=== PATIENT | female | born 1955 | race Caucasian/White ===

== ENCOUNTER 2018-04-13 18:37 | Inpatient (IN) | payer MEDICARE ==
[2018-04-13] MEDS ORDERED: diphenhydrAMINE 50 MG/ML 1 ML VIAL IVP STA (18:55)
[2018-04-13] MEDS ORDERED: FAMOTIDINE 20 MG/2 ML VIAL IV STA (18:55)
[2018-04-13] MEDS ORDERED: methylPREDNISolone SOD SUCCI 125 MG/2 ML VIAL IV STA (18:55)
[2018-04-13] MEDS ORDERED: SODIUM CHLORIDE 0.9% 500 ML IV STA (18:56)
--- NOTE | 2018-04-13 19:10 | ED ---
Allergic Reaction HPI - General Chief complaint: Allergic Reaction Stated complaint: POSS MED REACTION Time Seen by Provider: 04/13/18 18:49 Source: patient Mode of arrival: wheelchair Limitations: no limitations - History of Present Illness Initial Comments: 62-year-old female patient presents the emergency department today for evaluation of possible ALLERGIC reaction. Patient states that she started taking clindamycin and Bactrim 3 days ago for cellulitis to her lower extremities. Patient states that this afternoon she started having trouble breathing, a full body rash, and itching. Patient is unsure she has taken these medications before. She denies any throat, tongue, or lip swelling. Patient denies any recent fever, chills, chest pain, abdominal pain, nausea, vomiting, diarrhea, constipation, back pain, numbness, tingling, dizziness, weakness, hematuria, dysuria, urinary urgency, urinary frequency, headache, visual changes, or any other complaints. - Related Data Home Medications Medication Instructions Recorded Confirmed ALPRAZolam [Xanax] 0.25 mg PO BID PRN 04/13/18 04/13/18 Albuterol Inhaler [Ventolin Hfa 1 - 2 puff INHALATION RT-Q6H PRN 04/13/18 Inhaler] Albuterol Nebulized (Conc) 2.5 mg INHALATION RT-Q4H PRN 04/13/18 04/13/18 [Ventolin Nebulized (Conc)] Aspirin 325 mg PO DAILY 04/13/18 04/13/18 Atorvastatin [Lipitor] 20 mg PO DAILY 04/13/18 04/13/18 Cetirizine HCl [Zyrtec] 10 mg PO DAILY 04/13/18 04/13/18 Clindamycin [Cleocin] 150 mg PO Q8H 04/13/18 04/13/18 Cyclobenzaprine [Flexeril] 10 mg PO TID 04/13/18 04/13/18 Gabapentin [Neurontin] 600 mg PO TID 04/13/18 04/13/18 Levothyroxine Sodium [Synthroid] 125 mcg PO DAILY 04/13/18 04/13/18 Lisinopril-Hctz 10-12.5 mg 1 tab PO DAILY 04/13/18 04/13/18 [Zestoretic 10-12.5] Mometasone/Formoterol [Dulera 200 2 puff INHALATION BID 04/13/18 04/13/18 Mcg/5 Mcg Inhaler] Montelukast [Singulair] 10 mg PO HS 04/13/18 04/13/18 Phenytoin Sodium Extended 200 mg PO QAM 04/13/18 04/13/18 [Dilantin] Phenytoin Sodium Extended 300 mg PO HS 04/13/18 04/13/18 [Dilantin] Ranitidine HCl [Zantac] 150 mg PO DAILY 04/13/18 04/13/18 Sulfamethox-Tmp 800-160Mg [Bactrim 1 tab PO BID 04/13/18 04/13/18 DS 800-160 mg] diphenhydrAMINE [Benadryl] 25 mg PO BID PRN 04/13/18 04/13/18 predniSONE 20 mg PO DAILY 04/13/18 04/13/18 Allergies Allergy/AdvReac Type Severity Reaction Status Date / Time cephalexin [From Keflex] Allergy Rash/Hives Verified 04/13/18 19:12 ciprofloxacin [From Cipro] Allergy Rash/Hives Verified 04/13/18 19:12 clindamycin Allergy Rash/Hives Verified 04/13/18 19:12 levofloxacin [From Levaquin] Allergy Rash/Hives Verified 04/13/18 19:12 cyclobenzaprine AdvReac Rash/Hives Verified 04/13/18 19:12 [From Flexeril] Review of Systems ROS Statement: Those systems with pertinent positive or pertinent negative responses have been documented in the HPI. ROS Other: All systems not noted in ROS Statement are negative. Past Medical History Past Medical History: COPD, Hyperlipidemia, Hypertension, Seizure Disorder History of Any Multi-Drug Resistant Organisms: None Reported Past Surgical History: Appendectomy Additional Past Surgical History / Comment(s): Colonoscopy, colostomy, Past Psychological History: No Psychological Hx Reported Smoking Status: Former smoker Past Alcohol Use History: None Reported Past Drug Use History: None Reported General Exam Limitations: no limitations General appearance: alert, in no apparent distress, other (This is a well- developed, well-nourished, obese adult female patient in mild distress. Vital signs upon presentation are temperature 98.6F, pulse 109, respirations 25, blood pressure 119/55, pulse ox 93% on room air.) Eye exam: Present: normal appearance, PERRL, EOMI. Absent: scleral icterus, conjunctival injection, periorbital swelling ENT exam: Present: normal exam, normal oropharynx, mucous membranes moist Respiratory exam: Present: normal lung sounds bilaterally. Absent: respiratory distress, wheezes, rales, rhonchi, stridor Cardiovascular Exam: Present: normal rhythm, tachycardia, normal heart sounds. Absent: systolic murmur, diastolic murmur, rubs, gallop, clicks GI/Abdominal exam: Present: soft, normal bowel sounds. Absent: distended, tenderness, guarding, rebound, rigid Extremities exam: Present: other (Left lower leg is warm, and pedal post tibial pulses 2+ and equal bilaterally.) Neurological exam: Present: alert, oriented X3, CN II-XII intact Psychiatric exam: Present: normal affect, normal mood Skin exam: Present: warm, dry, intact, normal color, rash (There is a generalized upper body erythematous raised rash consistent with urticaria. Bilateral lower legs exhibit petechial rash. There are large purple macular patches to the left lower leg. Skin to the left leg is dusky.) Course Vital Signs 04/13/18 04/13/18 04/13/18 18:42 20:39 20:45 Temperature 98.6 F Pulse Rate 109 H 93 94 Respiratory 25 H 16 16 Rate Blood Pressure 119/55 O2 Sat by Pulse 93 L Oximetry Medical Decision Making - Medical Decision Making 62-year-old female patient presented to the emergency department initially for ALLERGIC reaction to medication. Patient was taking Bactrim, clindamycin, Flexeril, and prednisone for a presumed infection in her lower extremities. Physical examination did reveal a erythematous raised rash on her upper body and a petechial rash to her lower legs. Patient was mildly short of breath with oxygen saturation in the low 90s on room air. Patient was given Solu Medrol, Benadryl, and Pepcid. Rash did improve however patient continued to complain of shortness of breath especially with activity. Oxygen saturation remained low despite use of oxygen per nasal cannula. Patient does have a history of DVT and is only taking 325 aspirin daily. Given patient's shortness of breath, low oxygen saturation, history of DVT, and tachycardia we did proceed with CTA of the chest. Results did show multiple pulmonary emboli bilaterally. Patient be started on high dose heparin and admitted to the hospital for further evaluation. Patient be admitted to Dr. Blum. Pulmonology and cardiology will be consulted. - Lab Data Result diagrams: 04/13/18 18:51 04/13/18 18:51 Lab Results 04/13/18 04/13/18 04/13/18 Range/Units 18:51 18:51 18:51 WBC 16.0 H (3.8-10.6) k/uL RBC 5.44 H (3.80-5.40) m/uL Hgb 17.2 H (11.4-16.0) gm/dL Hct 50.1 H (34.0-46.0) % MCV 92.2 (80.0-100.0) fL MCH 31.7 (25.0-35.0) pg MCHC 34.3 (31.0-37.0) g/dL RDW 14.8 (11.5-15.5) % Plt Count 134 L (150-450) k/uL Neutrophils % 88 % Lymphocytes % 5 % Monocytes % 3 % Eosinophils % 3 % Basophils % 0 % Neutrophils # 14.0 H (1.3-7.7) k/uL Lymphocytes # 0.9 L (1.0-4.8) k/uL Monocytes # 0.5 (0-1.0) k/uL Eosinophils # 0.5 (0-0.7) k/uL Basophils # 0.0 (0-0.2) k/uL PT 10.5 (9.0-12.0) sec INR 1.1 (<1.2) APTT 23.5 (22.0-30.0) sec Sodium 131 L (137-145) mmol/L Potassium 3.9 (3.5-5.1) mmol/L Chloride 92 L (98-107) mmol/L Carbon Dioxide 26 (22-30) mmol/L Anion Gap 13 mmol/L BUN 23 H (7-17) mg/dL Creatinine 0.95 (0.52-1.04) mg/dL Est GFR (CKD-EPI)AfAm 74 (>60 ml/min/1.73 sqM) Est GFR (CKD-EPI)NonAf 64 (>60 ml/min/1.73 sqM) Glucose 105 H (74-99) mg/dL Calcium 8.7 (8.4-10.2) mg/dL Total Bilirubin 0.7 (0.2-1.3) mg/dL AST 55 H (14-36) U/L ALT 51 (9-52) U/L Alkaline Phosphatase 69 (38-126) U/L Total Creatine Kinase (30-135) U/L CK-MB (CK-2) (0.0-2.4) ng/mL CK-MB (CK-2) Rel Index Troponin I (0.000-0.034) ng/mL Total Protein 6.4 (6.3-8.2) g/dL Albumin 3.6 (3.5-5.0) g/dL 04/13/18 Range/Units 18:51 WBC (3.8-10.6) k/uL RBC (3.80-5.40) m/uL Hgb (11.4-16.0) gm/dL Hct (34.0-46.0) % MCV (80.0-100.0) fL MCH (25.0-35.0) pg MCHC (31.0-37.0) g/dL RDW (11.5-15.5) % Plt Count (150-450) k/uL Neutrophils % % Lymphocytes % % Monocytes % % Eosinophils % % Basophils % % Neutrophils # (1.3-7.7) k/uL Lymphocytes # (1.0-4.8) k/uL Monocytes # (0-1.0) k/uL Eosinophils # (0-0.7) k/uL Basophils # (0-0.2) k/uL PT (9.0-12.0) sec INR (<1.2) APTT (22.0-30.0) sec Sodium (137-145) mmol/L Potassium (3.5-5.1) mmol/L Chloride (98-107) mmol/L Carbon Dioxide (22-30) mmol/L Anion Gap mmol/L BUN (7-17) mg/dL Creatinine (0.52-1.04) mg/dL Est GFR (CKD-EPI)AfAm (>60 ml/min/1.73 sqM) Est GFR (CKD-EPI)NonAf (>60 ml/min/1.73 sqM) Glucose (74-99) mg/dL Calcium (8.4-10.2) mg/dL Total Bilirubin (0.2-1.3) mg/dL AST (14-36) U/L ALT (9-52) U/L Alkaline Phosphatase (38-126) U/L Total Creatine Kinase 36 (30-135) U/L CK-MB (CK-2) 1.5 (0.0-2.4) ng/mL CK-MB (CK-2) Rel Index 4.2 Troponin I 0.205 H* (0.000-0.034) ng/mL Total Protein (6.3-8.2) g/dL Albumin (3.5-5.0) g/dL - EKG Data -: EKG Interpreted by Me EKG Comments: EKG obtained at 2307 shows sinus rhythm with occasional premature ventricular, axis. Low voltage QRS. Ventricular rate is 99, [place] interval 122, QR denominational 86, QT 346, QTc 444. No evidence of ST elevation or depression. - Radiology Data Radiology results: report reviewed, image reviewed Two-view x-ray of the chest is obtained. Heart and mediastinum are normal. Lungs are clear. Costophrenic angles are clear. Bony thorax is intact. Impression by Dr. Sullivan shows no active cardiopulmonary disease. CT angios of the chest was obtained. Report was reviewed in its entirety. Impression by Dr. Sullivan shows multiple bilateral lower lobe pulmonary emboli. There is also some involvement of the right upper lobe. Disposition Clinical Impression: Allergic reaction, Pulmonary embolism, bilateral Disposition: ADMITTED IP TO THIS [facility] Is patient prescribed a controlled substance at d/c from ED?: No Decision to Admit Reason: Admit from EC Decision Date: 04/13/18 Decision Time: 22:41
[2018-04-13 19:12] LABS: Basophils % (A) 0 %; Eosinophils # (A) 0.5 k/uL (0-0.7); Eosinophils % (A) 3 %; HCT 50.1 % (34.0-46.0); HGB 17.2 gm/dL (11.4-16.0); Lymphocytes # (A) 0.9 k/uL (1.0-4.8); Lymphocytes % (A) 5 %; MCH 31.7 pg (25.0-35.0); MCHC 34.3 g/dL (31.0-37.0); MCV 92.2 fL (80.0-100.0); Mean Platelet Volume 7.6; Monocytes # (A) 0.5 k/uL (0-1.0); Monocytes % (A) 3 %; Neutrophils % (A) 88 %; Platelet Count 134 k/uL (150-450); RBC 5.44 m/uL (3.80-5.40); RDW 14.8 % (11.5-15.5)
[2018-04-13 19:22] LABS: Albumin 3.6 g/dL (3.5-5.0); Calcium 8.7 mg/dL (8.4-10.2); Potassium 3.9 mmol/L (3.5-5.1); Total Bilirubin 0.7 mg/dL (0.2-1.3); Total Protein 6.4 g/dL (6.3-8.2)
[2018-04-13 19:27] LABS: INR 1.1 (<1.2); Partial Thromboplastin Time 23.5 sec (22.0-30.0); Prothrombin Time 10.5 sec (9.0-12.0)
[2018-04-13] MEDS ORDERED: IPRATROPIUM-ALBUTEROL 3 ML NEB INHALATION STA (20:27)
--- NOTE | 2018-04-13 21:16 | XR ---
EXAMINATION TYPE: XR chest 2V DATE OF EXAM: 04/13/2018 COMPARISON: NONE HISTORY: Short of breath TECHNIQUE: Frontal and lateral views of the chest are obtained. FINDINGS: Heart and mediastinum are normal. Lungs are clear. Costophrenic angles are clear. Bony tho rax is intact. IMPRESSION: No active cardiopulmonary disease.
--- NOTE | 2018-04-13 22:26 | CT ---
EXAMINATION TYPE: CT chest angio for PE DATE OF EXAM: 04/13/2018 COMPARISON: NONE HISTORY: SOB, medication reaction CT DLP: 1067 mGycm Automated exposure control for dose reduction was used. CONTRAST: CT Chest for pulmonary embolism performed with with IV Contrast, patient injected with 60 mL of Isovu e 370. FINDINGS: There are 3-D post processed images. There is some coarsening of pulmonary interstitial markings. The re is some coalescent subpleural infiltrate at the left posterior lung base. There is no pericardial effusion. There are multiple large filling defects in the right lower lobe pu lmonary artery. There are small filling defects in the left lower lobe pulmonary artery. There is no mediastinal adenopathy. There is spurring in the thoracic spine.. Thoracic aorta is atheromatous. The re is no evidence of aneurysm or dissection. Impression Multiple bilateral lower lobe pulmonary emboli. There is also some involvement of right upper lobe. T his exam was discussed with the emergency room at 10:20 PM.
[2018-04-13] MEDS ORDERED: HEPARIN SODIUM,PORCINE 5,000 UNIT/ML 1 ML VIAL IV ONE (22:35)
[2018-04-13] MEDS ORDERED: HEPARIN SODIUM,PORCINE 5,000 UNIT/ML 1 ML VIAL IV PRN (22:35)
[2018-04-13] MEDS ORDERED: NALOXONE 0.4 MG/ML 1 ML VIAL IV PRN (22:36)
[2018-04-13] MEDS: SODIUM CHLORIDE 0.9% 1,000 ML IV SCH (23:17)
[2018-04-13] MEDS: HEPARIN SOD,PORK IN 0.45% NACL 25,000 UNIT in 0.45% NACL 1 500ML.BAG IV SCH (23:17)
[2018-04-13 23:18] LABS: Creatine Kinase MB 1.5 ng/mL (0.0-2.4)
[2018-04-13 23:19] LABS: Troponin I 0.205 ng/mL (0.000-0.034)
[2018-04-14 00:21] VITALS: BMI 51.2
[2018-04-14] MEDS: diphenhydrAMINE 50 MG/ML 1 ML VIAL IVP PRN ×4 (05:06→23:47)
[2018-04-14] MEDS: GABAPENTIN 300 MG CAP PO SCH ×5 (05:06→21:43)
[2018-04-14] MEDS: LEVOTHYROXINE 125 MCG TAB PO SCH (05:07)
[2018-04-14] MEDS: PHENYTOIN SODIUM EXTENDED 100 MG CAP PO SCH ×4 (05:07→21:43)
[2018-04-14 06:39] LABS: Basophils % (A) 0 %; Eosinophils # (A) 0.5 k/uL (0-0.7); Eosinophils % (A) 3 %; HCT 47.2 % (34.0-46.0); HGB 15.9 gm/dL (11.4-16.0); Lymphocytes % (A) 6 %; MCH 31.3 pg (25.0-35.0); MCHC 33.7 g/dL (31.0-37.0); MCV 92.7 fL (80.0-100.0); Mean Platelet Volume 7.5; Monocytes # (A) 0.5 k/uL (0-1.0); Monocytes % (A) 3 %; Neutrophils # (A) 15.4 k/uL (1.3-7.7); Neutrophils % (A) 88 %; Platelet Count 131 k/uL (150-450); RBC 5.09 m/uL (3.80-5.40); RDW 14.5 % (11.5-15.5); WBC 17.6 k/uL (3.8-10.6)
[2018-04-14] MEDS: FAMOTIDINE 20 MG TAB PO SCH (08:29)
[2018-04-14] MEDS: ATORVASTATIN 20 MG TAB PO SCH (08:29)
[2018-04-14] MEDS: LISINOPRIL-HCTZ 10-12.5 MG 1 EACH TAB PO SCH (08:30)
[2018-04-14] MEDS: LORATADINE 10 MG TAB PO SCH (08:30)
[2018-04-14] MEDS ORDERED: FAMOTIDINE 20 MG/2 ML VIAL IV SCH (09:00)
--- NOTE | 2018-04-14 09:29 | P.CRDCN ---
History of Present Illness History of present illness: Patient admitted with shortness of breath. There is also an issue regarding an ALLERGIC reaction to Bactrim and clindamycin which she started 3 days back. However she was found to have bilateral pulmonary emboli after an evaluation for shortness of breath. She denied any chest discomfort she is lying flat in bed but she is short of breath at rest. She's had a history DVT in the past. CT angiogram chest documented multiple bilateral lower lobe pulmonary emboli as well as involvement of the right upper lobe Currently was consulted on account of sinus tachycardia. Twelve-lead ECG shows heart rate of 100 beats a minute which is appropriate for someone with pulmonary embolism, bilateral, with associated shortness of breath Her white count is elevated at 17,000 Borderline troponins of 0.2 which is also consistent with the diagnosis of pulmonary embolism All labs are reviewed Review of systems: No fever chills or rigors, no cough, phlegm or expectoration , no nausea, vomiting or diarrhea, no hematuria, dysuria, no musculoskeletal complaints, no strokes or seizures, no skin lesions. Her main complaint is an ALLERGIC reaction and shortness of breath no chest pain On examination blood pressure is 127 68 mmHg pulse rate is in the 80s respirations rate increased afebrile Breath sounds are reduced bilaterally Patient is morbidly obese BMI Coumadin 50 Heart sounds are distant Bilateral lower extremity edema noted Impression Patient presented with bilateral pulmonary emboli with sinus tachycardia and borderline troponins consistent with a diagnosis of pulmonary was him. This does not represent an acute myocardial infarction. Rather it represents acute myocardial injury in response to bilateral pulmonary emboli and its effects Hypertension Dyslipidemia Suggest 2-D echo and Doppler study to assess RV size and function and PA pressures Management of pulmonary embolism per primary care team and pulmonology Past Medical History Past Medical History: COPD, Hyperlipidemia, Hypertension, Seizure Disorder History of Any Multi-Drug Resistant Organisms: None Reported Past Surgical History: Appendectomy Additional Past Surgical History / Comment(s): Colonoscopy, colostomy, Past Psychological History: No Psychological Hx Reported Smoking Status: Former smoker Past Alcohol Use History: None Reported Past Drug Use History: None Reported - Past Family History Father Family Medical History: Cancer Mother Family Medical History: CVA/TIA, Hypertension Additional Family Medical History / Comment(s): BRAIN ANEURYSM Medications and Allergies Home Medications Medication Instructions Recorded Confirmed Type ALPRAZolam [Xanax] 0.25 mg PO BID PRN 04/13/18 04/13/18 History Albuterol Inhaler [Ventolin Hfa 1 - 2 puff INHALATION RT-Q6H PRN 04/13/18 History Inhaler] Albuterol Nebulized (Conc) 2.5 mg INHALATION RT-Q4H PRN 04/13/18 04/13/18 History [Ventolin Nebulized (Conc)] Aspirin 325 mg PO DAILY 04/13/18 04/13/18 History Atorvastatin [Lipitor] 20 mg PO DAILY 04/13/18 04/13/18 History Cetirizine HCl [Zyrtec] 10 mg PO DAILY 04/13/18 04/13/18 History Clindamycin [Cleocin] 150 mg PO Q8H 04/13/18 04/13/18 History Cyclobenzaprine [Flexeril] 10 mg PO TID 04/13/18 04/13/18 History Gabapentin [Neurontin] 600 mg PO TID 04/13/18 04/13/18 History Levothyroxine Sodium [Synthroid] 125 mcg PO DAILY 04/13/18 04/13/18 History Lisinopril-Hctz 10-12.5 mg 1 tab PO DAILY 04/13/18 04/13/18 History [Zestoretic 10-12.5] Mometasone/Formoterol [Dulera 200 2 puff INHALATION BID 04/13/18 04/13/18 History Mcg/5 Mcg Inhaler] Montelukast [Singulair] 10 mg PO HS 04/13/18 04/13/18 History Phenytoin Sodium Extended 200 mg PO QAM 04/13/18 04/13/18 History [Dilantin] Phenytoin Sodium Extended 300 mg PO HS 04/13/18 04/13/18 History [Dilantin] Ranitidine HCl [Zantac] 150 mg PO DAILY 04/13/18 04/13/18 History Sulfamethox-Tmp 800-160Mg [Bactrim 1 tab PO BID 04/13/18 04/13/18 History DS 800-160 mg] diphenhydrAMINE [Benadryl] 25 mg PO BID PRN 04/13/18 04/13/18 History predniSONE 20 mg PO DAILY 04/13/18 04/13/18 History Allergies Allergy/AdvReac Type Severity Reaction Status Date / Time cephalexin [From Keflex] Allergy Rash/Hives Verified 04/13/18 19:12 ciprofloxacin [From Cipro] Allergy Rash/Hives Verified 04/13/18 19:12 clindamycin Allergy Rash/Hives Verified 04/13/18 19:12 levofloxacin [From Levaquin] Allergy Rash/Hives Verified 04/13/18 19:12 cyclobenzaprine AdvReac Rash/Hives Verified 04/13/18 19:12 [From Flexeril] Physical Exam Vitals: Vital Signs Temp Pulse Pulse Resp BP BP Pulse Ox 04/14/18 08:10 97.4 F L 82 16 127/68 90 L 04/14/18 06:56 97 04/14/18 04:00 98.0 F 78 19 118/67 93 L 04/14/18 00:00 97.8 F 81 19 114/60 93 L 04/13/18 23:18 97.9 F 106 H 28 H 107/56 94 L 04/13/18 20:45 94 16 04/13/18 20:39 93 16 04/13/18 18:42 98.6 F 109 H 25 H 119/55 93 L Intake and Output 04/13/18 04/14/18 04/14/18 22:59 06:59 14:59 Intake Total 358.902 Balance 358.902 Intake: Intake, IV Titration 358.902 Amount Heparin Sod,Pork in 0.45% 358.902 NaCl 25,000 unit In 0.45 % NaCl 1 500ml.bag @ 18 UNITS/KG/HR 45.72 mls/hr IV .[id number] [facility] Rx#: [id number] Other: Voiding Method Toilet # Voids 1 Weight 127.006 kg 127 kg Results 04/14/18 06:17 04/13/18 18:51 Cardiac Enzymes 04/13/18 04/13/18 04/14/18 Range/Units 18:51 18:51 02:45 AST 55 H (14-36) U/L CK-MB (CK-2) 1.5 (0.0-2.4) ng/mL Troponin I 0.205 H* 0.298 H* (0.000-0.034) ng/mL 04/14/18 Range/Units 06:17 AST (14-36) U/L CK-MB (CK-2) (0.0-2.4) ng/mL Troponin I 0.210 H* (0.000-0.034) ng/mL Coagulation 18 04/14/18 Range/Units 18:51 06:17 PT 10.5 (9.0-12.0) sec APTT 23.5 153.1 H* (22.0-30.0) sec CBC 04/13/18 04/14/18 Range/Units 18:51 06:17 WBC 16.0 H 17.6 H (3.8-10.6) k/uL RBC 5.44 H 5.09 (3.80-5.40) m/uL Hgb 17.2 H 15.9 (11.4-16.0) gm/dL Hct 50.1 H 47.2 H (34.0-46.0) % Plt Count 134 L 131 L (150-450) k/uL Comprehensive Metabolic Panel 04/13/18 Range/Units 18:51 Sodium 131 L (137-145) mmol/L Potassium 3.9 (3.5-5.1) mmol/L Chloride 92 L (98-107) mmol/L Carbon Dioxide 26 (22-30) mmol/L BUN 23 H (7-17) mg/dL Creatinine 0.95 (0.52-1.04) mg/dL Glucose 105 H (74-99) mg/dL Calcium 8.7 (8.4-10.2) mg/dL AST 55 H (14-36) U/L ALT 51 (9-52) U/L Alkaline Phosphatase 69 (38-126) U/L Total Protein 6.4 (6.3-8.2) g/dL Albumin 3.6 (3.5-5.0) g/dL Current Medications Generic Name Dose Route Start Last Admin Trade Name Freq PRN Reason Stop Dose Admin Alprazolam 0.25 mg 04/13/18 23:30 Xanax PO BID PRN Anxiety Atorvastatin Calcium 20 mg 04/14/18 09:00 04/14/18 08:29 Lipitor PO 20 mg DAILY MAURICE Administration Budesonide/Formoterol Fumarate 2 puff 04/14/18 09:00 Symbicort 160-4.5 Mcg Inhaler INHALATION RT-BID MAURICE Diphenhydramine HCl 25 mg 04/13/18 22:39 04/14/18 05:06 Benadryl IVP 25 mg Q6HR PRN Administration Allergy Symptoms Famotidine 20 mg 04/14/18 09:00 Pepcid IV DAILY MAURICE Famotidine 20 mg 04/14/18 09:00 04/14/18 08:29 Pepcid PO 20 mg DAILY MAURICE Administration Gabapentin 600 mg 04/14/18 00:00 04/14/18 08:38 Neurontin PO 300 mg TID MAURICE Administration Lisinopril/HCTZ 1 each 04/14/18 09:00 04/14/18 08:30 Zestoretic 10-12.5 PO 1 each DAILY MAURICE Administration Heparin Sodium (Porcine) 0 unit 04/13/18 22:35 Heparin IV PER PROTOCOL PRN Low PTT Protocol Heparin Sodium/Sodium Chloride 500 mls @ 45.72 mls/hr 04/13/18 22:45 08:14 25,000 unit/ Sodium Chloride IV 15 units/kg/hr .[id number] MAURICE 38.1 mls/hr Protocol Titration 18 UNITS/KG/HR Sodium Chloride 1,000 mls @ 20 mls/hr 04/13/18 22:45 04/13/18 23:17 Saline 0.9% IV 20 mls/hr .Q24H MAURICE Administration Levothyroxine Sodium 125 mcg 04/14/18 06:30 04/14/18 05:07 Synthroid PO 125 mcg DAILY@0630 MAURICE Administration Loratadine 10 mg 04/14/18 09:00 04/14/18 08:30 Claritin PO 10 mg DAILY MAURICE Administration Montelukast Sodium 10 mg 04/14/18 21:00 Singulair PO HS MAURICE Naloxone HCl 0.2 mg 04/13/18 22:36 Narcan IV Q2M PRN Opioid Reversal Phenytoin Sodium 200 mg 04/14/18 09:00 04/14/18 08:31 Dilantin PO 200 mg QAM MAURICE Administration Phenytoin Sodium 300 mg 04/14/18 00:00 04/14/18 05:13 Dilantin PO Not Given HS MAURICE Intake and Output 04/13/18 04/14/18 04/14/18 22:59 06:59 14:59 Intake Total 358.902 Balance 358.902 Intake: Intake, IV Titration 358.902 Amount Heparin Sod,Pork in 0.45% 358.902 NaCl 25,000 unit In 0.45 % NaCl 1 500ml.bag @ 18 UNITS/KG/HR 45.72 mls/hr IV .[id number] [facility] Rx#: [id number] Other: Voiding Method Toilet # Voids 1 Weight 127.006 kg 127 kg 04/14/18 06:17 04/13/18 18:51
[2018-04-14] MEDS: HEPARIN SOD,PORK IN 0.45% NACL 25,000 UNIT in 0.45% NACL 1 500ML.BAG IV SCH ×2 (11:43→23:46)
[2018-04-14] MEDS: methylPREDNISolone SOD SUCCI 125 MG/2 ML VIAL IV SCH ×3 (11:43→23:47)
--- NOTE | 2018-04-14 12:42 | US ---
EXAMINATION TYPE: US venous doppler duplex LE DATE OF EXAM: 04/14/2018 12:31 PM COMPARISON: NONE CLINICAL HISTORY: swelling. Bilateral PE's, hx of DVT, patient on blood thinners, obese patient, exam done portable SIDE PERFORMED: Bilateral TECHNIQUE: The lower extremity deep venous system is examined utilizing real time linear array sonog marcos with graded compression, doppler sonography and color-flow sonography. VESSELS IMAGED: External Iliac Vein (EIV) Common Femoral Vein Deep Femoral Vein Greater Saphenous Vein * Femoral Vein Popliteal Vein Small Saphenous Vein * Proximal Calf Veins (* superficial vessels) Right Leg: Appears negative for DVT Left Leg: Appears positive for non occluding DVT mid popliteal vein with partial flow and partial co mpression of vein. Thrombus seen within superficial greater saphenous vein from groin extending throu gh mid calf IMPRESSION: 1. Findings are compatible with mild occluding DVT within the popliteal vein. There also appears to b e superficial venous thrombosis within the saphenous vein from the groin extending through the mid ca lf.
--- NOTE | 2018-04-14 14:01 | ECHOF ---
Referral Reason:PE MEASUREMENTS -------- HEIGHT: 157.5 cm WEIGHT: 126.6 kg BP: 118/67 RVIDd: 3.5 cm (< 3.3) IVSd: 1.1 cm (0.6 - 1.1) LVIDd: 3.4 cm (3.9 - 5.3) LVPWd: 1.3 cm (0.6 - 1.1) IVSs: 1.6 cm LVIDs: 1.1 cm LVPWs: 2.0 cm Ao Diam: 3.2 cm (2.0 - 3.7) AV Cusp: 1.8 cm (1.5 - 2.6) LA Diam: 3.7 cm (2.7 - 3.8) MV EXCURSION: 12.885 mm (> 18.000) MV EF SLOPE: 79 mm/s (70 - 150) EPSS: 0.5 cm MV E Harley: 0.70 m/s MV DecT: 278 ms MV A Harley: 1.06 m/s MV E/A Ratio: 0.67 RAP: 5.00 mmHg RVSP: 38.18 mmHg FINDINGS -------- Sinus rhythm. This was a technically difficult study with suboptimal views. The left ventricular size is normal. Left ventricular wall thickness is normal. Overall left vent ricular systolic function is normal with, an EF between 55 - 60 %. The right ventricle is mildly enlarged. The left atrium is normal in size. The right atrium is normal in size. Lumason used The aortic valve is trileaflet, and appears structurally normal. No aortic stenosis or regurgitation. There is trace mitral regurgitation. Mild tricuspid regurgitation present. There is mild pulmonary hypertension. The right ventricular systolic pressure, as measured by Doppler, is 38.18mmHg. Pulmonic valve appears structurally normal. The aortic root size is normal. The pericardium is normal. CONCLUSIONS -------- 1. Sinus rhythm. 2. This was a technically difficult study with suboptimal views. 3. The left ventricular size is normal. 4. Left ventricular wall thickness is normal. 5. Overall left ventricular systolic function is normal with, an EF between 55 - 60 %. 6. The right ventricle is mildly enlarged. 7. The left atrium is normal in size. 8. The right atrium is normal in size. 9. Lumason used 10. The aortic valve is trileaflet, and appears structurally normal. No aortic stenosis or regurgitat ion. 11. There is trace mitral regurgitation. 12. Mild tricuspid regurgitation present. 13. There is mild pulmonary hypertension. 14. The right ventricular systolic pressure, as measured by Doppler, is 38.18mmHg. 15. Pulmonic valve appears structurally normal. 16. The aortic root size is normal. 17. The pericardium is normal. BOOK TRIMMER: Zakiya Spring RDCS
--- NOTE | 2018-04-14 14:58 | P.HPIM ---
History of Present Illness Hospitalist documentation spec covering for Dr. Blum from 04/10 until 04/20/2018 This is a pleasant 62 years old female with past medical history of hyperlipidemia, hypertension, seizure disorder, status post appendectomy, and former smoker. She presents to the emergency room for dyspnea of 2 days' duration. Patient states initially she had a block bite about a week ago after that she developed induration on the bite sites and along the line below its in the left lower leg medially and it was progressively towards the upper thigh. She went to the hospital and then to her doctor's where she was diagnosed with lymphangitis and started on the clindamycin and Bactrim. After about 4 doses of clindamycin she developed this rash which is petechial and confluent all over her body and extremities symmetrical and bilateral without itching. Patient states she has taken Bactrim before with no problems. However patient over the last 2 days she developed dyspnea, without chest pain in the ED patient was found to have dyspnea, tachycardia, and hypoxia. Patient was treated initially with steroids, Benadryl and Pepcid. Shows some interval improvement in her rash however she remained dyspneic and hypoxic and in view of her previous DVT as she was on aspirin for that CTPA was done which shows bilateral emboli so patient was admitted to the hospital with acute pulmonary embolism. Cardiology was been consulted for tachycardia and high troponin which couldn't be explained by the patient presentation of PE, infection, and other areas however recommended 2-D echo and treating the primary cause Review of Systems CONSTITUTIONAL: No fever, no malaise, no fatigue. HEENT: No recent visual problems or hearing problems. Denied any sore throat. CARDIOVASCULAR: No orthopnea, PND, no palpitations, no syncope. PULMONARY: No shortness of breath, no cough, no hemoptysis. GASTROINTESTINAL: No diarrhea, no nausea, no vomiting, no abdominal pain. Normoactive bowel sounds. NEUROLOGICAL: No headaches, no weakness, no numbness. HEMATOLOGICAL: Denies any bleeding or petechiae. GENITOURINARY: Denies any burning micturition, frequency, or urgency. MUSCULOSKELETAL/RHEUMATOLOGICAL: Denies any joint pain, swelling, or any muscle pain. ENDOCRINE: Denies any polyuria or polydipsia. Past Medical History Past Medical History: COPD, Hyperlipidemia, Hypertension, Seizure Disorder History of Any Multi-Drug Resistant Organisms: None Reported Past Surgical History: Appendectomy Additional Past Surgical History / Comment(s): Colonoscopy, colostomy, Past Psychological History: No Psychological Hx Reported Smoking Status: Former smoker Past Alcohol Use History: None Reported Past Drug Use History: None Reported - Past Family History Father Family Medical History: Cancer Mother Family Medical History: CVA/TIA, Hypertension Additional Family Medical History / Comment(s): BRAIN ANEURYSM Medications and Allergies Home Medications Medication Instructions Recorded Confirmed Type ALPRAZolam [Xanax] 0.25 mg PO BID PRN 04/13/18 04/13/18 History Albuterol Inhaler [Ventolin Hfa 1 - 2 puff INHALATION RT-Q6H PRN 04/13/18 History Inhaler] Albuterol Nebulized (Conc) 2.5 mg INHALATION RT-Q4H PRN 04/13/18 04/13/18 History [Ventolin Nebulized (Conc)] Aspirin 325 mg PO DAILY 04/13/18 04/13/18 History Atorvastatin [Lipitor] 20 mg PO DAILY 04/13/18 04/13/18 History Cetirizine HCl [Zyrtec] 10 mg PO DAILY 04/13/18 04/13/18 History Clindamycin [Cleocin] 150 mg PO Q8H 04/13/18 04/13/18 History Cyclobenzaprine [Flexeril] 10 mg PO TID 04/13/18 04/13/18 History Gabapentin [Neurontin] 600 mg PO TID 04/13/18 04/13/18 History Levothyroxine Sodium [Synthroid] 125 mcg PO DAILY 04/13/18 04/13/18 History Lisinopril-Hctz 10-12.5 mg 1 tab PO DAILY 04/13/18 04/13/18 History [Zestoretic 10-12.5] Mometasone/Formoterol [Dulera 200 2 puff INHALATION BID 04/13/18 04/13/18 History Mcg/5 Mcg Inhaler] Montelukast [Singulair] 10 mg PO HS 04/13/18 04/13/18 History Phenytoin Sodium Extended 200 mg PO QAM 04/13/18 04/13/18 History [Dilantin] Phenytoin Sodium Extended 300 mg PO HS 04/13/18 04/13/18 History [Dilantin] Ranitidine HCl [Zantac] 150 mg PO DAILY 04/13/18 04/13/18 History Sulfamethox-Tmp 800-160Mg [Bactrim 1 tab PO BID 04/13/18 04/13/18 History DS 800-160 mg] diphenhydrAMINE [Benadryl] 25 mg PO BID PRN 04/13/18 04/13/18 History predniSONE 20 mg PO DAILY 04/13/18 04/13/18 History Allergies Allergy/AdvReac Type Severity Reaction Status Date / Time cephalexin [From Keflex] Allergy Rash/Hives Verified 04/13/18 19:12 ciprofloxacin [From Cipro] Allergy Rash/Hives Verified 04/13/18 19:12 clindamycin Allergy Rash/Hives Verified 04/13/18 19:12 levofloxacin [From Levaquin] Allergy Rash/Hives Verified 04/13/18 19:12 cyclobenzaprine AdvReac Rash/Hives Verified 04/13/18 19:12 [From Flexeril] Physical Exam Vitals: Vital Signs Temp Pulse Pulse Resp BP BP Pulse Ox 04/14/18 08:10 97.4 F L 82 16 127/68 90 L 04/14/18 06:56 97 04/14/18 04:00 98.0 F 78 19 118/67 93 L 04/14/18 00:00 97.8 F 81 19 114/60 93 L 04/13/18 23:18 97.9 F 106 H 28 H 107/56 94 L 04/13/18 20:45 94 16 04/13/18 20:39 93 16 04/13/18 18:42 98.6 F 109 H 25 H 119/55 93 L Intake and Output 04/13/18 04/14/18 04/14/18 22:59 06:59 14:59 Intake Total 358.902 Balance 358.902 Intake: Intake, IV Titration 358.902 Amount Heparin Sod,Pork in 0.45% 358.902 NaCl 25,000 unit In 0.45 % NaCl 1 500ml.bag @ 18 UNITS/KG/HR 45.72 mls/hr IV .[id number] [facility] Rx#: [id number] Other: Voiding Method Toilet # Voids 1 Weight 127.006 kg 127 kg GENERAL: The patient is alert and oriented x3, not in any acute distress. Well developed, well nourished. HEENT: Pupils are round and equally reacting to light. EOMI. No scleral icterus. No conjunctival pallor. Normocephalic, atraumatic. No pharyngeal erythema. No thyromegaly. CARDIOVASCULAR: S1 and S2 present. No murmurs, rubs, or gallops. PULMONARY: Chest is clear to auscultation, no wheezing or crackles. Patient is tachypneic ABDOMEN: Soft, nontender, nondistended, normoactive bowel sounds. No palpable organomegaly. MUSCULOSKELETAL: No joint swelling or deformity. EXTREMITIES: No cyanosis, clubbing, or pedal edema. NEUROLOGICAL: Gross neurological examination did not reveal any focal deficits. SKIN: Petechial and confluent rashes, on the trunk and extremity, symmetrical Results CBC & Chem 7: 04/14/18 06:17 04/13/18 18:51 Labs: Abnormal Lab Results - Last 24 Hours (Table) 04/13/18 04/13/18 04/13/18 Range/Units 18:51 18:51 18:51 WBC 16.0 H (3.8-10.6) k/uL RBC 5.44 H (3.80-5.40) m/uL Hgb 17.2 H (11.4-16.0) gm/dL Hct 50.1 H (34.0-46.0) % Plt Count 134 L (150-450) k/uL Neutrophils # 14.0 H (1.3-7.7) k/uL Lymphocytes # 0.9 L (1.0-4.8) k/uL APTT (22.0-30.0) sec Sodium 131 L (137-145) mmol/L Chloride 92 L (98-107) mmol/L BUN 23 H (7-17) mg/dL Glucose 105 H (74-99) mg/dL AST 55 H (14-36) U/L Troponin I 0.205 H* (0.000-0.034) ng/mL 04/14/18 04/14/18 04/14/18 Range/Units 02:45 06:17 06:17 WBC 17.6 H (3.8-10.6) k/uL RBC (3.80-5.40) m/uL Hgb (11.4-16.0) gm/dL Hct 47.2 H (34.0-46.0) % Plt Count 131 L (150-450) k/uL Neutrophils # 15.4 H (1.3-7.7) k/uL Lymphocytes # (1.0-4.8) k/uL APTT 153.1 H* (22.0-30.0) sec Sodium (137-145) mmol/L Chloride (98-107) mmol/L BUN (7-17) mg/dL Glucose (74-99) mg/dL AST (14-36) U/L Troponin I 0.298 H* (0.000-0.034) ng/mL 04/14/18 Range/Units 06:17 WBC (3.8-10.6) k/uL RBC (3.80-5.40) m/uL Hgb (11.4-16.0) gm/dL Hct (34.0-46.0) % Plt Count (150-450) k/uL Neutrophils # (1.3-7.7) k/uL Lymphocytes # (1.0-4.8) k/uL APTT (22.0-30.0) sec Sodium (137-145) mmol/L Chloride (98-107) mmol/L BUN (7-17) mg/dL Glucose (74-99) mg/dL AST (14-36) U/L Troponin I 0.210 H* (0.000-0.034) ng/mL Thrombosis Risk Factor Assmnt - Choose All That Apply Each Factor Represents 1 point: Abnormal pulmonary function (COPD), Obesity ( BMI >25) Each Risk Factor Represents 2 Points: Age 61-74 years Each Risk Factor Represents 3 Points: History of DVT/PE Thrombosis Risk Factor Assessment Total Risk Factor Score: 7 Thrombosis Risk Factor Assessment Level: High Risk Assessment and Plan Plan: -Acute pulmonary embolism, continue with heparin drip as per protocol. Follow- up with pulmonary recommendation.pt is sa saturating 90% on 2 L/m oxygen. Venous Doppler positive for left lower extremity DVT -Tachycardia, with positive troponin, multifactorial mostly due to acute PE, versus infection. Wrapper Stemmer Operator has been consulted and recommended to do echo and treating the primary cause -Cellulitis, possible ALLERGIC reaction to outpatient therapy mostly to clindamycin as patient states that she has taken Bactrim before with no problem. call ID consult -Rash petite, confluent, on the trunk and extremities of one week duration, mostly secondary to ALLERGIC reaction to medications -Mild hyponatremia continue to monitor -History of seizure continue with Dilantin, check level -History of hypothyroidism on levothyroxine 125 g daily, check TSH level -Hyperlipidemia continue with statin -Hypertension continue with lisinopril-hydrochlorothiazide DVT prophylaxis, patient is already on anticoagulation therapy GI prophylaxis Pepcid
--- NOTE | 2018-04-14 15:40 | P.CNPUL ---
History of Present Illness Consult date: 04/14/18 Reason for consult: dyspnea History of present illness: 62-year-old female patient, morbidly obese with a BMI of 51.2, who was recently seen at her primary care physician's office for some increased erythema in lower extremities bilaterally. The patient was suspected to have cellulitis and the patient was placed on a combination of Bactrim and clindamycin. Apparently this started up after an insect/bug bite in her left lower extremity. Within a few days after the antibiotic initiation, the patient developed a diffuse maculopapular rash involving throughout the body, more extensive in lower extremities however still quite extensive in the upper extremities, trunk, and chest and back. Note that the patient's lower extremity rash is more so of a petechial rash which is involving areas that is nonblanching. Upper extremities and trunk seems to be more so with the care of your nature. No open wounds or sores. The patient was also having increased shortness of breath and for that reason she presented herself to the emergency department. Note that in the MRSA problem the patient was also complaining of acute shortness of breath, tachycardia and she was also hypoxic. She was given a dose of steroids, Benadryl and Pepcid and following that she was admitted to the medical floor. There was a concern for pulmonary embolism. CT angios the chest was done that was of a low quality as the patient had suboptimal contrast enhancement of the pulmonary arteries. The CTA was interpreted as being positive for bilateral embolism to the lower lobes and the patient was started on IV heparin and the patient was asked to be seen by pulmonology for further advice. The patient gives a remote history of DVT lower extremities yet this has not been acute problem and the patient has been on no anticoagulation. As mentioned, she is morbidly obese. She has history of COPD, hypertension and hyperlipidemia and previous history of seizure disorder. on her labs, the patient had a posterior troponin of 0.23 respectively. Renal function was stable at creatinine of 0.9. The white cell count is at 17.6. The patient has a hemoglobin of 15.9. She has 3% eosinophils.. Electrodes are all within normal limits. Echocardiogram was completed and the patient was found to have a preserved LV function with an ejection fraction of 55-60%. RV was mildly enlarged. The patient's right atrium was normal size. The patient had a right ventricular systolic pressure measured to be around 38 mmHg. No pericardial effusion. Lower extremity Doppler done earlier today upon my request showed moderate occlusive DVT within the popliteal vein and there is also superficial venous thromboses within the saphenous vein from the groin extending to the left mid calf. The findings are consistent with positive nonoccluding acute DVT in the mid popliteal vein. The right appears negative,. Upon further questioning, the patient has typical features of obstructive sleep apnea that has not been evaluated in the past including loud snoring, witnessed apneas and chronic hypersomnia and sleepiness. She has had previous ALLERGIES to cephalosporins, Cipro and Levaquin. No reported angioedema or anaphylaxis. No history of lupus. Nausea vasculitis. Renal function is within normal limits Review of Systems 12 point review of system was done and the positive findings are almost above in history of present illness Past Medical History Past Medical History: COPD, Hyperlipidemia, Hypertension, Seizure Disorder, Sleep Apnea/CPAP/BIPAP Additional Past Medical History / Comment(s): Morbid obesity, COPD, hypertension , hyperlipidemia, seizure disorder, obstructive sleep apnea, previous history of DVT of the lower extremity treated with warfarin back in 2011, hypertension, hypothyroidism, History of Any Multi-Drug Resistant Organisms: None Reported Past Surgical History: Appendectomy Additional Past Surgical History / Comment(s): Colonoscopy, colostectomy and colostomy post colonoscopy Past Psychological History: No Psychological Hx Reported Smoking Status: Former smoker (quit smoking in 1997 and she smoked 15 ppy) Past Alcohol Use History: None Reported Past Drug Use History: None Reported - Past Family History Father Family Medical History: Cancer Mother Family Medical History: CVA/TIA, Hypertension Additional Family Medical History / Comment(s): BRAIN ANEURYSM Medications and Allergies Home Medications Medication Instructions Recorded Confirmed Type ALPRAZolam [Xanax] 0.25 mg PO BID PRN 04/13/18 04/13/18 History Albuterol Inhaler [Ventolin Hfa 1 - 2 puff INHALATION RT-Q6H PRN 04/13/18 History Inhaler] Albuterol Nebulized (Conc) 2.5 mg INHALATION RT-Q4H PRN 04/13/18 04/13/18 History [Ventolin Nebulized (Conc)] Aspirin 325 mg PO DAILY 04/13/18 04/13/18 History Atorvastatin [Lipitor] 20 mg PO DAILY 04/13/18 04/13/18 History Cetirizine HCl [Zyrtec] 10 mg PO DAILY 04/13/18 04/13/18 History Clindamycin [Cleocin] 150 mg PO Q8H 04/13/18 04/13/18 History Cyclobenzaprine [Flexeril] 10 mg PO TID 04/13/18 04/13/18 History Gabapentin [Neurontin] 600 mg PO TID 04/13/18 04/13/18 History Levothyroxine Sodium [Synthroid] 125 mcg PO DAILY 04/13/18 04/13/18 History Lisinopril-Hctz 10-12.5 mg 1 tab PO DAILY 04/13/18 04/13/18 History [Zestoretic 10-12.5] Mometasone/Formoterol [Dulera 200 2 puff INHALATION BID 04/13/18 04/13/18 History Mcg/5 Mcg Inhaler] Montelukast [Singulair] 10 mg PO HS 04/13/18 04/13/18 History Phenytoin Sodium Extended 200 mg PO QAM 04/13/18 04/13/18 History [Dilantin] Phenytoin Sodium Extended 300 mg PO HS 04/13/18 04/13/18 History [Dilantin] Ranitidine HCl [Zantac] 150 mg PO DAILY 04/13/18 04/13/18 History Sulfamethox-Tmp 800-160Mg [Bactrim 1 tab PO BID 04/13/18 04/13/18 History DS 800-160 mg] diphenhydrAMINE [Benadryl] 25 mg PO BID PRN 04/13/18 04/13/18 History predniSONE 20 mg PO DAILY 04/13/18 04/13/18 History Allergies Allergy/AdvReac Type Severity Reaction Status Date / Time cephalexin [From Keflex] Allergy Rash/Hives Verified 04/13/18 19:12 ciprofloxacin [From Cipro] Allergy Rash/Hives Verified 04/13/18 19:12 clindamycin Allergy Rash/Hives Verified 04/13/18 19:12 levofloxacin [From Levaquin] Allergy Rash/Hives Verified 04/13/18 19:12 cyclobenzaprine AdvReac Rash/Hives Verified 04/13/18 19:12 [From Flexeril] Physical Exam Vitals: Vital Signs Temp Pulse Pulse Resp BP BP Pulse Ox 04/14/18 08:10 97.4 F L 82 16 127/68 90 L 04/14/18 06:56 97 04/14/18 04:00 98.0 F 78 19 118/67 93 L 04/14/18 00:00 97.8 F 81 19 114/60 93 L 04/13/18 23:18 97.9 F 106 H 28 H 107/56 94 L 04/13/18 20:45 94 16 04/13/18 20:39 93 16 04/13/18 18:42 98.6 F 109 H 25 H 119/55 93 L Intake and Output 04/13/18 04/14/18 04/14/18 22:59 06:59 14:59 Intake Total 358.902 Balance 358.902 Intake: Intake, IV Titration 358.902 Amount Heparin Sod,Pork in 0.45% 358.902 NaCl 25,000 unit In 0.45 % NaCl 1 500ml.bag @ 18 UNITS/KG/HR 45.72 mls/hr IV .[id number] [facility] Rx#: [id number] Other: Voiding Method Toilet # Voids 1 Weight 127.006 kg 127 kg Morbidly obese BMI of 51.2., Comfortable likely distress. Not using excessive muscle breathing. Head exam was generally normal. There was no scleral icterus or corneal arcus. Mucous membranes were moist. Neck is supple and the patient has significant crowding of the posterior pharynx. There is no goiter or neck masses. Lungs sounds are diminished bilaterally. No wheezes overall currently crackles at this point in time. Cardiac exam revealed the PMI to be normally situated and sized. The rhythm was regular and no extrasystoles were noted during several minutes of auscultation. The first and second heart sounds were normal and physiologic splitting of the second heart sound was noted. There were no murmurs, rubs, clicks, or gallops. Abdomen is morbidly obese soft nontender. No direct tenderness. No rebound tenderness. No guarding. Organs cannot be accurately palpated. Extremities are swollen and there is trace pitting edema lower eczematous bilaterally. No cyanosis or clubbing. Skin the patient has diffuse erythematous macular papular rash with blanching and upper extremities and the trunk. Similar rash is present lower extremities and becomes more confluent and there are areas of petechial rash and lower extremity that are nonblanching. No open wounds or ulcerations. Neurologically the patient is awake and alert and is no focal neurological deficits. Results - Laboratory Findings CBC and BMP: 04/14/18 06:17 04/13/18 18:51 PT/INR, D-dimer PT 10.5 sec (9.0-12.0) 04/13/18 18:51 INR 1.1 (<1.2) 04/13/18 18:51 Abnormal lab findings: Abnormal Labs 04/13/18 04/13/18 04/13/18 18:51 18:51 18:51 WBC 16.0 H RBC 5.44 H Hgb 17.2 H Hct 50.1 H Plt Count 134 L Neutrophils # 14.0 H Lymphocytes # 0.9 L APTT Sodium 131 L Chloride 92 L BUN 23 H Glucose 105 H AST 55 H Troponin I 0.205 H* 04/14/18 04/14/18 04/14/18 02:45 06:17 06:17 WBC 17.6 H RBC Hgb Hct 47.2 H Plt Count 131 L Neutrophils # 15.4 H Lymphocytes # APTT 153.1 H* Sodium Chloride BUN Glucose AST Troponin I 0.298 H* 04/14/18 06:17 WBC RBC Hgb Hct Plt Count Neutrophils # Lymphocytes # APTT Sodium Chloride BUN Glucose AST Troponin I 0.210 H* - Diagnostic Findings Chest x-ray: image reviewed Assessment and Plan Plan: Assessment 1 acute right pulmonary embolism with a popliteal DVT involving left lower extremity/deep vein and a superficial venous thrombosis of the left lower extremity. Currently on IV heparin 2 acute dyspnea/hypoxemia secondary to above 3 morbid obesity with BMI 51.2 4 diffuse rash or to care in the upper extremities and trunk and more subtle petechial and confluent in lower extremities in the feet. Consider ALLERGIC reaction to antibiotics provided. Consider underlying vasculitis. 5 obstructive sleep apnea clinically suspected and is to be pursued on outpatient basis 6 hyperlipidemia 7 hypertension 8 hypothyroidism 9 seizure disorder 10 remote history of DVT 11 minimal troponin leak probably related to pulmonary embolism 12 mild degree of pulmonary hypertension with a preserved LV function, probably related to pulmonary embolism versus being chronic related to chronic hypoxemia sleep breathing disorder. Plan Continued IV heparin and transitioned this patient to oral anticoagulation probably Eliquis at a later stage. Disposition can take place in the next 34 hours. Echocardiogram was noted. Doppler of the lower extremity was noted. 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 Put the patient IV Solu-Medrol suspecting an ALLERGIC reaction/rash. Obtain a urinalysis looking for any hematuria and no pain serum TIKI levels and serum p and c-ANCA levels. Monitor the rash. Continue to follow make further recommendations based on overall progress. Outpatient sleep study to undergo a reevaluation on her obstructive sleep apnea. Time with Patient: Greater than 30
[2018-04-14 17:53] LABS: Appearance,Urine Clear (Clear); Bilirubin,Urine Negative (Negative); Blood,Urine Small (Negative); Color,Urine Yellow; Glucose,Urine (UA) Negative (Negative); Ketones,Urine Negative (Negative); Leukocyte Esterase,Urine Negative (Negative); Mucus,Urine Rare /hpf; Nitrite,Urine Negative (Negative); Protein,Urine Negative (Negative); RBC,Urine 1 /hpf (0-5); Specific Gravity,Urine 1.008 (1.001-1.035); Squamous Epithelial Cell,Urine 1 /hpf (0-4); Urobilinogen,Urine <2.0 mg/dL (<2.0); WBC,Urine 1 /hpf (0-5)
[2018-04-14] MEDS: MONTELUKAST 10 MG TAB PO SCH (21:42)
[2018-04-14] MEDS: SODIUM CHLORIDE 0.9% 1,000 ML IV SCH (23:46)
[2018-04-14] MEDS: ALPRAZolam 0.25 MG TAB PO PRN (23:47)
[2018-04-15] MEDS: diphenhydrAMINE 50 MG/ML 1 ML VIAL IVP PRN ×3 (06:25→23:39)
[2018-04-15] MEDS: LEVOTHYROXINE 125 MCG TAB PO SCH (06:25)
[2018-04-15] MEDS: methylPREDNISolone SOD SUCCI 125 MG/2 ML VIAL IV SCH ×4 (06:25→23:40)
[2018-04-15 06:26] LABS: Basophils % (A) 0 %; Eosinophils # (A) 0.5 k/uL (0-0.7); Eosinophils % (A) 3 %; HCT 44.2 % (34.0-46.0); Lymphocytes # (A) 1.2 k/uL (1.0-4.8); Lymphocytes % (A) 8 %; MCH 32.1 pg (25.0-35.0); MCHC 33.9 g/dL (31.0-37.0); MCV 94.7 fL (80.0-100.0); Mean Platelet Volume 7.5; Monocytes # (A) 0.5 k/uL (0-1.0); Monocytes % (A) 4 %; Neutrophils # (A) 12.5 k/uL (1.3-7.7); Neutrophils % (A) 84 %; Platelet Count 120 k/uL (150-450); RBC 4.66 m/uL (3.80-5.40); RDW 15.1 % (11.5-15.5); WBC 14.9 k/uL (3.8-10.6)
[2018-04-15 07:02] LABS: Anion Gap 12 mmol/L; Blood Urea Nitrogen 17 mg/dL (7-17); Calcium 8.6 mg/dL (8.4-10.2); Carbon Dioxide 24 mmol/L (22-30); Chloride 104 mmol/L (98-107); Glucose 101 mg/dL (74-99); Potassium 4.6 mmol/L (3.5-5.1); Sodium 140 mmol/L (137-145)
--- NOTE | 2018-04-15 07:28 | P.PN ---
Subjective Hospitalist quality control checker covering for Dr. Blum from 04/10 until 04/20/2018 This is a pleasant 62 years old female with past medical history of hyperlipidemia, hypertension, seizure disorder, status post appendectomy, and former smoker. She presents to the emergency room for dyspnea of 2 days' duration. Patient states initially she had a block bite about a week ago after that she developed induration on the bite sites and along the line below its in the left lower leg medially and it was progressively towards the upper thigh. She went to the hospital and then to her doctor's where she was diagnosed with lymphangitis and started on the clindamycin and Bactrim. After about 4 doses of clindamycin she developed this rash which is petechial and confluent all over her body and extremities symmetrical and bilateral without itching. Patient states she has taken Bactrim before with no problems. However patient over the last 2 days she developed dyspnea, without chest pain in the ED patient was found to have dyspnea, tachycardia, and hypoxia. Patient was treated initially with steroids, Benadryl and Pepcid. Shows some interval improvement in her rash however she remained dyspneic and hypoxic and in view of her previous DVT as she was on aspirin for that CTPA was done which shows bilateral emboli so patient was admitted to the hospital with acute pulmonary embolism. Cardiology was been consulted for tachycardia and high troponin which couldn't be explained by the patient presentation of PE, infection, and other areas however recommended 2-D echo and treating the primary cause ROS CONSTITUTIONAL: No fever, no malaise, no fatigue. HEENT: No recent visual problems or hearing problems. Denied any sore throat. CARDIOVASCULAR: No orthopnea, PND, no palpitations, no syncope. PULMONARY: No shortness of breath, no cough, no hemoptysis. GASTROINTESTINAL: No diarrhea, no nausea, no vomiting, no abdominal pain. Normoactive bowel sounds. NEUROLOGICAL: No headaches, no weakness, no numbness. HEMATOLOGICAL: Denies any bleeding or petechiae. GENITOURINARY: Denies any burning micturition, frequency, or urgency. MUSCULOSKELETAL/RHEUMATOLOGICAL: Denies any joint pain, swelling, or any muscle pain. ENDOCRINE: Denies any polyuria or polydipsia. Objective - Vital Signs Vital signs: Vital Signs Temp 96.8 F L 04/15/18 04:00 Pulse 74 04/15/18 04:00 Resp 18 04/15/18 04:00 BP 124/59 04/15/18 04:00 Pulse Ox 96 04/15/18 04:00 Intake & Output 04/14/18 04/15/18 04/15/18 18:59 06:59 18:59 Intake Total 1585.617 731.520 Output Total 300 Balance 1585.617 431.520 Weight 129.7 kg Intake: Intake, IV Titration 491.617 731.520 Amount Heparin Sod,Pork in 0.45% 491.617 731.520 NaCl 25,000 unit In 0.45 % NaCl 1 500ml.bag @ 18 UNITS/KG/HR 45.72 mls/hr IV .[id number] [facility] Rx#: [id number] Oral 1094 Output: Urine 300 Other: Voiding Method Toilet Toilet # Voids 1 1 # Bowel Movements 1 - Exam GENERAL: The patient is alert and oriented x3, not in any acute distress. Well developed, well nourished. HEENT: Pupils are round and equally reacting to light. EOMI. No scleral icterus. No conjunctival pallor. Normocephalic, atraumatic. No pharyngeal erythema. No thyromegaly. CARDIOVASCULAR: S1 and S2 present. No murmurs, rubs, or gallops. PULMONARY: Chest is clear to auscultation, no wheezing or crackles. Patient is tachypneic ABDOMEN: Soft, nontender, nondistended, normoactive bowel sounds. No palpable organomegaly. MUSCULOSKELETAL: No joint swelling or deformity. EXTREMITIES: No cyanosis, clubbing, or pedal edema. NEUROLOGICAL: Gross neurological examination did not reveal any focal deficits. SKIN: Petechial and confluent rashes, on the trunk and extremity, symmetrical - Labs CBC & Chem 7: 04/15/18 06:10 04/15/18 06:10 Labs: Abnormal Lab Results - Last 24 Hours (Table) 04/14/18 04/14/18 04/15/18 Range/Units 13:56 16:30 06:10 WBC 14.9 H (3.8-10.6) k/uL Plt Count 120 L (150-450) k/uL Neutrophils # 12.5 H (1.3-7.7) k/uL APTT 66.6 H (22.0-30.0) sec Glucose (74-99) mg/dL Urine Blood Small H (Negative) Urine Mucus Rare H (None) /hpf 04/15/18 04/15/18 Range/Units 06:10 06:10 WBC (3.8-10.6) k/uL Plt Count (150-450) k/uL Neutrophils # (1.3-7.7) k/uL APTT 76.2 H (22.0-30.0) sec Glucose 101 H (74-99) mg/dL Urine Blood (Negative) Urine Mucus (None) /hpf Assessment and Plan Plan: -Acute pulmonary embolism and DVT, continue with heparin drip as per protocol. Follow-up with pulmonary recommendation.pt is sa saturating 90% on 2 L/m oxygen. Venous Doppler positive for left lower extremity DVT -Tachycardia, with positive troponin, multifactorial mostly due to acute PE, versus infection. Local Tanker Truck Driver has been consulted and recommended to do echo and treating the primary cause -Cellulitis, possible ALLERGIC reaction to outpatient therapy mostly to clindamycin as patient states that she has taken Bactrim before with no problem. call ID consult -Rash petichal and confluent, on the trunk and extremities of one week duration , mostly secondary to ALLERGIC reaction to medications, no hematuria. Serum 8 and a is negative. Serum pand C-ANCEA are pending. rash looks the same -Mild hyponatremia continue to monitor -History of seizure continue with Dilantin, check level -History of hypothyroidism on levothyroxine 125 g daily, check TSH level -Hyperlipidemia continue with statin -Hypertension continue with lisinopril-hydrochlorothiazide DVT prophylaxis, patient is already on anticoagulation therapy GI prophylaxis Pepcid
[2018-04-15] MEDS: SYMBICORT 160-4.5 MCG INHALER INHALATION SCH ×2 (07:50→17:37)
[2018-04-15] MEDS: FAMOTIDINE 20 MG TAB PO SCH (08:40)
[2018-04-15] MEDS: ATORVASTATIN 20 MG TAB PO SCH (08:41)
[2018-04-15] MEDS: PHENYTOIN SODIUM EXTENDED 100 MG CAP PO SCH ×2 (08:41→21:58)
[2018-04-15] MEDS: LISINOPRIL-HCTZ 10-12.5 MG 1 EACH TAB PO SCH (08:41)
[2018-04-15] MEDS: HEPARIN SOD,PORK IN 0.45% NACL 25,000 UNIT in 0.45% NACL 1 500ML.BAG IV SCH ×2 (08:41→17:37)
[2018-04-15] MEDS: GABAPENTIN 300 MG CAP PO SCH ×3 (08:41→21:59)
[2018-04-15] MEDS: LORATADINE 10 MG TAB PO SCH (08:41)
--- NOTE | 2018-04-15 11:07 | P.PN ---
Subjective Progress Note Date: 04/15/18 62-year-old female patient, morbidly obese with a BMI of 51.2, who was recently seen at her primary care physician's office for some increased erythema in lower extremities bilaterally. The patient was suspected to have cellulitis and the patient was placed on a combination of Bactrim and clindamycin. Apparently this started up after an insect/bug bite in her left lower extremity. Within a few days after the antibiotic initiation, the patient developed a diffuse maculopapular rash involving throughout the body, more extensive in lower extremities however still quite extensive in the upper extremities, trunk, and chest and back. Note that the patient's lower extremity rash is more so of a petechial rash which is involving areas that is nonblanching. Upper extremities and trunk seems to be more so with the care of your nature. No open wounds or sores. The patient was also having increased shortness of breath and for that reason she presented herself to the emergency department. Note that in the MRSA problem the patient was also complaining of acute shortness of breath, tachycardia and she was also hypoxic. She was given a dose of steroids, Benadryl and Pepcid and following that she was admitted to the medical floor. There was a concern for pulmonary embolism. CT angios the chest was done that was of a low quality as the patient had suboptimal contrast enhancement of the pulmonary arteries. The CTA was interpreted as being positive for bilateral embolism to the lower lobes and the patient was started on IV heparin and the patient was asked to be seen by pulmonology for further advice. The patient gives a remote history of DVT lower extremities yet this has not been acute problem and the patient has been on no anticoagulation. As mentioned, she is morbidly obese. She has history of COPD, hypertension and hyperlipidemia and previous history of seizure disorder. on her labs, the patient had a posterior troponin of 0.23 respectively. Renal function was stable at creatinine of 0.9. The white cell count is at 17.6. The patient has a hemoglobin of 15.9. She has 3% eosinophils.. Electrodes are all within normal limits. Echocardiogram was completed and the patient was found to have a preserved LV function with an ejection fraction of 55-60%. RV was mildly enlarged. The patient's right atrium was normal size. The patient had a right ventricular systolic pressure measured to be around 38 mmHg. No pericardial effusion. Lower extremity Doppler done earlier today upon my request showed moderate occlusive DVT within the popliteal vein and there is also superficial venous thromboses within the saphenous vein from the groin extending to the left mid calf. The findings are consistent with positive nonoccluding acute DVT in the mid popliteal vein. The right appears negative,. Upon further questioning, the patient has typical features of obstructive sleep apnea that has not been evaluated in the past including loud snoring, witnessed apneas and chronic hypersomnia and sleepiness. She has had previous ALLERGIES to cephalosporins, Cipro and Levaquin. No reported angioedema or anaphylaxis. No history of lupus. Nausea vasculitis. Renal function is within normal limits. On today's evaluation of 04/15/2018, the patient has no respiratory distress. The patient was confirmed to have DVT of the lower extremity and pulmonary embolism and the patient remains on IV heparin. No pleurisy. No hemoptysis. Nevertheless, the patient is still diffuse rash throughout her body more so in lower extremities. There rash is more petechial in lower extremities bilaterally. TIKI was negative. Patient was placed on a combination of IV Solu- Medrol and Benadryl and there is no improvement in the rash itself. As such I think this is a petechial rash which could be either drug-induced/viral. Noted the patient was initially diagnosed having a bug bite in her left lower extremity and subsequently she was given a combination of Bactrim and clindamycin. This does not look to be a typical drug reaction from Bactrim. This doesn't look like it's erythema multiforme. We'll continue to follow. Will need a dermatology evaluation. Objective - Vital Signs Vital signs: Vital Signs Temp 98 F 04/15/18 08:41 Pulse 80 04/15/18 08:41 Resp 18 04/15/18 08:41 BP 119/58 04/15/18 08:41 Pulse Ox 91 L 04/15/18 08:41 Intake & Output 04/14/18 04/15/18 04/15/18 18:59 06:59 18:59 Intake Total 1585.617 731.520 158.335 Output Total 300 Balance 1585.617 431.520 158.335 Weight 129.7 kg Intake: Intake, IV Titration 491.617 731.520 58.335 Amount Heparin Sod,Pork in 0.45% 491.617 731.520 58.335 NaCl 25,000 unit In 0.45 % NaCl 1 500ml.bag @ 18 UNITS/KG/HR 45.72 mls/hr IV .[id number] [facility] Rx#: [id number] Oral 1094 100 Output: Urine 300 Other: Voiding Method Toilet Toilet Toilet # Voids 1 1 # Bowel Movements 1 - Exam Morbidly obese BMI of 51.2., Comfortable likely distress. Not using excessive muscle breathing. Head exam was generally normal. There was no scleral icterus or corneal arcus. Mucous membranes were moist. Neck is supple and the patient has significant crowding of the posterior pharynx. There is no goiter or neck masses. Lungs sounds are diminished bilaterally. No wheezes overall currently crackles at this point in time. Cardiac exam revealed the PMI to be normally situated and sized. The rhythm was regular and no extrasystoles were noted during several minutes of auscultation. The first and second heart sounds were normal and physiologic splitting of the second heart sound was noted. There were no murmurs, rubs, clicks, or gallops. Abdomen is morbidly obese soft nontender. No direct tenderness. No rebound tenderness. No guarding. Organs cannot be accurately palpated. Extremities are swollen and there is trace pitting edema lower eczematous bilaterally. No cyanosis or clubbing. Skin the patient has diffuse erythematous macular papular rash with blanching and upper extremities and the trunk. Similar rash is present lower extremities and becomes more confluent and there are areas of petechial rash and lower extremity that are nonblanching. No open wounds or ulcerations. Neurologically the patient is awake and alert and is no focal neurological deficits. - Labs CBC & Chem 7: 04/15/18 06:10 04/15/18 06:10 Labs: Abnormal Lab Results - Last 24 Hours (Table) 04/14/18 04/14/18 04/15/18 Range/Units 13:56 16:30 06:10 WBC 14.9 H (3.8-10.6) k/uL Plt Count 120 L (150-450) k/uL Neutrophils # 12.5 H (1.3-7.7) k/uL APTT 66.6 H (22.0-30.0) sec Glucose (74-99) mg/dL Urine Blood Small H (Negative) Urine Mucus Rare H (None) /hpf 04/15/18 04/15/18 Range/Units 06:10 06:10 WBC (3.8-10.6) k/uL Plt Count (150-450) k/uL Neutrophils # (1.3-7.7) k/uL APTT 76.2 H (22.0-30.0) sec Glucose 101 H (74-99) mg/dL Urine Blood (Negative) Urine Mucus (None) /hpf Assessment and Plan Plan: Assessment 1 acute right pulmonary embolism with a popliteal DVT involving left lower extremity/deep vein and a superficial venous thrombosis of the left lower extremity. Currently on IV heparin. Already status is stable. Brester status is also stable. The patient has a normal level is good ejection fraction with mild pulmonary hypertension 2 acute dyspnea/hypoxemia secondary to above, improving 3 morbid obesity with BMI 51.2 4 diffuse rash or to care in the upper extremities and trunk and more subtle petechial and confluent in lower extremities in the feet. Consider ALLERGIC reaction to antibiotics provided. Consider underlying vasculitis. Consider Dilantin reaction. Consider infections, very unlikely to be related to [place] spotted fever. 5 obstructive sleep apnea clinically suspected and is to be pursued on outpatient basis 6 hyperlipidemia 7 hypertension 8 hypothyroidism 9 seizure disorder 10 remote history of DVT 11 minimal troponin leak probably related to pulmonary embolism 12 mild degree of pulmonary hypertension with a preserved LV function, probably related to pulmonary embolism versus being chronic related to chronic hypoxemia sleep breathing disorder. Plan Keep the IV heparin and will explore options of oral anticoagulation at a later stage. Continued IV Solu-Medrol. Blood TIKI was negative. Will need a dermatology consult regarding this diffuse rash with petechial features and lower extremities bilaterally. TIKI was negative. Urinalysis showed no evidence of any hematuria. Renal function is within normal limits. Consider Dilantin reaction. Consider drug reaction related to the previous antibiotics discussed.
[2018-04-15] MEDS: MONTELUKAST 10 MG TAB PO SCH (21:59)
[2018-04-15] MEDS: ALPRAZolam 0.25 MG TAB PO PRN (23:39)
[2018-04-16] MEDS: HEPARIN SOD,PORK IN 0.45% NACL 25,000 UNIT in 0.45% NACL 1 500ML.BAG IV SCH (01:11)
[2018-04-16 06:22] LABS: Basophils # (A) 0.1 k/uL (0-0.2); Basophils % (A) 1 %; Eosinophils # (A) 0.2 k/uL (0-0.7); Eosinophils % (A) 2 %; HCT 41.7 % (34.0-46.0); HGB 14.3 gm/dL (11.4-16.0); Lymphocytes # (A) 1.5 k/uL (1.0-4.8); Lymphocytes % (A) 12 %; MCH 32.5 pg (25.0-35.0); MCHC 34.2 g/dL (31.0-37.0); MCV 95.2 fL (80.0-100.0); Mean Platelet Volume 7.6; Monocytes # (A) 0.6 k/uL (0-1.0); Monocytes % (A) 5 %; Neutrophils # (A) 9.2 k/uL (1.3-7.7); Neutrophils % (A) 78 %; Platelet Count 129 k/uL (150-450); RBC 4.38 m/uL (3.80-5.40); RDW 15.4 % (11.5-15.5); WBC 11.9 k/uL (3.8-10.6)
[2018-04-16] MEDS: methylPREDNISolone SOD SUCCI 125 MG/2 ML VIAL IV SCH ×4 (06:30→23:09)
[2018-04-16] MEDS: LEVOTHYROXINE 125 MCG TAB PO SCH (06:30)
[2018-04-16] MEDS: diphenhydrAMINE 50 MG/ML 1 ML VIAL IVP PRN ×3 (06:32→19:59)
[2018-04-16] MEDS: SODIUM CHLORIDE 0.9% 1,000 ML IV SCH ×2 (06:36→23:06)
[2018-04-16] MEDS: SYMBICORT 160-4.5 MCG INHALER INHALATION SCH (06:37)
[2018-04-16 07:09] LABS: Anion Gap 8 mmol/L; Blood Urea Nitrogen 17 mg/dL (7-17); Calcium 8.7 mg/dL (8.4-10.2); Carbon Dioxide 28 mmol/L (22-30); Chloride 105 mmol/L (98-107); Glucose 104 mg/dL (74-99); Sodium 141 mmol/L (137-145)
--- NOTE | 2018-04-16 07:41 | P.PN ---
Subjective Hospitalist consulting sme covering for Dr. Blum from 04/10 until 04/20/2018 This is a pleasant 62 years old female with past medical history of hyperlipidemia, hypertension, seizure disorder, status post appendectomy, and former smoker. She presents to the emergency room for dyspnea of 2 days' duration. Patient states initially she had a block bite about a week ago after that she developed induration on the bite sites and along the line below its in the left lower leg medially and it was progressively towards the upper thigh. She went to the hospital and then to her doctor's where she was diagnosed with lymphangitis and started on the clindamycin and Bactrim. After about 4 doses of clindamycin she developed this rash which is petechial and confluent all over her body and extremities symmetrical and bilateral without itching. Patient states she has taken Bactrim before with no problems. However patient over the last 2 days she developed dyspnea, without chest pain in the ED patient was found to have dyspnea, tachycardia, and hypoxia. Patient was treated initially with steroids, Benadryl and Pepcid. Shows some interval improvement in her rash however she remained dyspneic and hypoxic and in view of her previous DVT as she was on aspirin for that CTPA was done which shows bilateral emboli so patient was admitted to the hospital with acute pulmonary embolism. Cardiology was been consulted for tachycardia and high troponin which couldn't be explained by the patient presentation of PE, infection, and other areas however recommended 2-D echo and treating the primary cause ROS CONSTITUTIONAL: No fever, no malaise, no fatigue. HEENT: No recent visual problems or hearing problems. Denied any sore throat. CARDIOVASCULAR: No orthopnea, PND, no palpitations, no syncope. PULMONARY: No shortness of breath, no cough, no hemoptysis. GASTROINTESTINAL: No diarrhea, no nausea, no vomiting, no abdominal pain. Normoactive bowel sounds. NEUROLOGICAL: No headaches, no weakness, no numbness. HEMATOLOGICAL: Denies any bleeding or petechiae. GENITOURINARY: Denies any burning micturition, frequency, or urgency. MUSCULOSKELETAL/RHEUMATOLOGICAL: Denies any joint pain, swelling, or any muscle pain. ENDOCRINE: Denies any polyuria or polydipsia. Objective - Vital Signs Vital signs: Vital Signs Temp 96.8 F L 04/16/18 04:00 Pulse 71 04/16/18 04:00 Resp 18 04/16/18 04:00 BP 152/71 04/16/18 04:00 Pulse Ox 92 L 04/16/18 04:00 Intake & Output 04/15/18 04/16/18 04/16/18 18:59 06:59 18:59 Intake Total 973.314 249.851 Output Total 650 200 Balance 323.314 49.851 Weight 129.7 kg Intake: Intake, IV Titration 453.314 249.851 Amount Heparin Sod,Pork in 0.45% 353.314 249.851 NaCl 25,000 unit In 0.45 % NaCl 1 500ml.bag @ 18 UNITS/KG/HR 45.72 mls/hr IV .[id number] [facility] Rx#: [id number] Sodium Chloride 0.9% 1, 100 000 ml @ 20 mls/hr IV . Q24H [facility] Rx#:[id number] Oral 520 Output: Urine 650 200 Other: Voiding Method Toilet Toilet # Voids 2 1 - Exam GENERAL: The patient is alert and oriented x3, not in any acute distress. Well developed, well nourished. HEENT: Pupils are round and equally reacting to light. EOMI. No scleral icterus. No conjunctival pallor. Normocephalic, atraumatic. No pharyngeal erythema. No thyromegaly. CARDIOVASCULAR: S1 and S2 present. No murmurs, rubs, or gallops. PULMONARY: Chest is clear to auscultation, no wheezing or crackles. Patient is tachypneic ABDOMEN: Soft, nontender, nondistended, normoactive bowel sounds. No palpable organomegaly. MUSCULOSKELETAL: No joint swelling or deformity. EXTREMITIES: No cyanosis, clubbing, or pedal edema. NEUROLOGICAL: Gross neurological examination did not reveal any focal deficits. SKIN: Petechial and confluent rashes, on the trunk and extremity, symmetrical. less pink and hot today - Labs CBC & Chem 7: 04/16/18 05:52 04/16/18 05:52 Labs: Abnormal Lab Results - Last 24 Hours (Table) 04/15/18 04/16/18 04/16/18 Range/Units 13:09 05:52 05:52 WBC 11.9 H (3.8-10.6) k/uL Plt Count 129 L (150-450) k/uL Neutrophils # 9.2 H (1.3-7.7) k/uL APTT 56.6 H (22.0-30.0) sec Glucose 104 H (74-99) mg/dL 04/16/18 Range/Units 05:52 WBC (3.8-10.6) k/uL Plt Count (150-450) k/uL Neutrophils # (1.3-7.7) k/uL APTT 58.8 H (22.0-30.0) sec Glucose (74-99) mg/dL Microbiology - Last 24 Hours (Table) 04/14/18 15:21 Blood Culture - Preliminary Blood No Growth after 24 hours 04/14/18 15:42 Blood Culture - Preliminary Blood No Growth after 24 hours Assessment and Plan Plan: -Acute pulmonary embolism and DVT, continue with heparin drip as per protocol. Follow-up with pulmonary recommendation.pt is sa saturating 90% on 2 L/m oxygen. Venous Doppler positive for left lower extremity DVT -Tachycardia, with positive troponin, multifactorial mostly due to acute PE, versus infection. Supervisor Coating has been consulted and recommended to do echo and treating the primary cause -Cellulitis, possible ALLERGIC reaction to outpatient therapy mostly to clindamycin as patient states that she has taken Bactrim before with no problem. call ID consult -Rash petichal and confluent, on the trunk and extremities of one week duration , mostly secondary to ALLERGIC reaction to medications, no hematuria. Serum 8 and a is negative. Serum pand C-ANCEA are pending. rash looks improving -Mild hyponatremia continue to monitor -History of seizure continue with Dilantin, check level -History of hypothyroidism on levothyroxine 125 g daily, check TSH level -Hyperlipidemia continue with statin -Hypertension continue with lisinopril-hydrochlorothiazide DVT prophylaxis, patient is already on anticoagulation therapy GI prophylaxis Pepcid
--- NOTE | 2018-04-16 08:07 | CONS ---
CONSULTATION DATE OF SERVICE: 04/15/2018. REASON FOR CONSULTATION: 1. Allergic reaction. 2. Lower extremity cellulitis. HISTORY OF PRESENT ILLNESS: The patient is a 62-year-old female who apparently developed left leg swelling and redness for which the patient has been diagnosed with cellulitis. The patient has been started on clindamycin and Bactrim. After taking those antibiotics for a day, the patient did have significant rash that has been evolving in the lower extremities. The patient is complaining of significant itching to the area. There is no pain. No fever. No chills. With significant rash she presented to the [facility] ER. The patient was also complaining of some shortness of breath with concern for possible PE. The patient did have a CT angiogram that was negative for PE. The patient has been started on Benadryl, Pepcid, heparin, Solu-Medrol 60 q.6h in addition, the patient has been admitted to the hospital. I was asked to see the patient regarding further recommendation. REVIEW OF SYSTEMS: CONSTITUTIONAL: Positive for weakness but no fever. EYES: No complaint. ENT: No complaint. RESPIRATORY: No complaint. CARDIOVASCULAR: No complaint. GENITOURINARY: No complaint. GASTROINTESTINAL: No complaint. MUSCULOSKELETAL: No complaint. INTEGUMENTARY: As per HPI. PSYCHOLOGICAL: No complaint. ENDOCRINE: No complaint. NEUROLOGIC: No complaint. PAST MEDICAL HISTORY: Significant for lower extremity cellulitis, COPD, hypertension, hyperlipidemia, seizure disorder. PAST SURGICAL HISTORY: Appendectomy, cholecystectomy, and colonoscopy. SOCIAL HISTORY: Remote history of smoking. No drinking or drug use. FAMILY HISTORY: Father history of cancer. Mother history of CVA and TIA and hypertension. ALLERGIES: To CIPROFLOXACIN, CEPHALEXIN, LEVOFLOXACIN AND CLINDA as per this recent rash. MEDICATIONS: Include the patient currently on Dilantin, Narcan, Singulair, Solu-Medrol, Claritin, Synthroid, heparin, Zestoretic, Neurontin, Pepcid, Benadryl, Lipitor, and Xanax. EXAMINATION: Blood pressure is 120/70 with a pulse of 85, temperature 98.4. She is 90% on room air. General description is a middle aged female lying in bed in no distress. No tachypnea or accessory muscle of respiration use. HEENT: Shows no pallor or scleral icterus. Oral mucosa is dry. No pharyngeal erythema. NECK: Trachea is central. No thyromegaly. LUNGS: Unlabored breathing. Clear to auscultation anteriorly. HEART: S1, S2. Regular rate and rhythm. ABDOMEN: Soft, no tenderness. No rigidity. EXTREMITIES: No edema feet. SKIN: Did show diffuse maculopapular rash with evidence of cellulitis to the lower extremities. No skin breakdown. No drainage NEUROLOGICAL: Patient is awake, alert, oriented. Mood and affect normal. LABS: Hemoglobin is 15, white count 14.9, BUN of 17, creatinine 0.60. Blood culture obtained currently pending. IMPRESSION/PLAN: 1. The patient is admitted to the hospital with generalized maculopapular rash likely secondary to the drug rash and more likely secondary to Bactrim. It is more common to develop a rash to Bactrim then to the clindamycin even though the patient has taken Bactrim in the past without any problem. 2. Leukocytosis, more likely steroid effect and secondary generalized rash rather than to infectious etiology. PLAN: 1. Recommend keeping the patient on Solu-Medrol and Benadryl and Pepcid for definitive for 48 hours. 2. We will go to monitor her clinical course closely and no clinical suspicion for underlying cellulitis and we will hold on any systemic antibiotic therapy at this point. 3. We will follow up on clinical condition to further adjust medication if needed. Thank you for this consultation. Will follow this patient along with you. MMODL / IJN: [id number] /
[2018-04-16] MEDS: GABAPENTIN 300 MG CAP PO SCH ×3 (08:47→19:59)
[2018-04-16] MEDS: FAMOTIDINE 20 MG TAB PO SCH (08:47)
[2018-04-16] MEDS: LISINOPRIL-HCTZ 10-12.5 MG 1 EACH TAB PO SCH (08:47)
[2018-04-16] MEDS: ATORVASTATIN 20 MG TAB PO SCH (08:47)
[2018-04-16] MEDS: PHENYTOIN SODIUM EXTENDED 100 MG CAP PO SCH ×2 (08:47→19:59)
[2018-04-16] MEDS: LORATADINE 10 MG TAB PO SCH (08:47)
--- NOTE | 2018-04-16 12:56 | P.PN ---
Subjective Progress Note Date: 04/16/18 62-year-old female patient, morbidly obese with a BMI of 51.2, who was recently seen at her primary care physician's office for some increased erythema in lower extremities bilaterally. The patient was suspected to have cellulitis and the patient was placed on a combination of Bactrim and clindamycin. Apparently this started up after an insect/bug bite in her left lower extremity. Within a few days after the antibiotic initiation, the patient developed a diffuse maculopapular rash involving throughout the body, more extensive in lower extremities however still quite extensive in the upper extremities, trunk, and chest and back. Note that the patient's lower extremity rash is more so of a petechial rash which is involving areas that is nonblanching. Upper extremities and trunk seems to be more so with the care of your nature. No open wounds or sores. The patient was also having increased shortness of breath and for that reason she presented herself to the emergency department. Note that in the MRSA problem the patient was also complaining of acute shortness of breath, tachycardia and she was also hypoxic. She was given a dose of steroids, Benadryl and Pepcid and following that she was admitted to the medical floor. There was a concern for pulmonary embolism. CT angios the chest was done that was of a low quality as the patient had suboptimal contrast enhancement of the pulmonary arteries. The CTA was interpreted as being positive for bilateral embolism to the lower lobes and the patient was started on IV heparin and the patient was asked to be seen by pulmonology for further advice. The patient gives a remote history of DVT lower extremities yet this has not been acute problem and the patient has been on no anticoagulation. As mentioned, she is morbidly obese. She has history of COPD, hypertension and hyperlipidemia and previous history of seizure disorder. on her labs, the patient had a posterior troponin of 0.23 respectively. Renal function was stable at creatinine of 0.9. The white cell count is at 17.6. The patient has a hemoglobin of 15.9. She has 3% eosinophils.. Electrodes are all within normal limits. Echocardiogram was completed and the patient was found to have a preserved LV function with an ejection fraction of 55-60%. RV was mildly enlarged. The patient's right atrium was normal size. The patient had a right ventricular systolic pressure measured to be around 38 mmHg. No pericardial effusion. Lower extremity Doppler done earlier today upon my request showed moderate occlusive DVT within the popliteal vein and there is also superficial venous thromboses within the saphenous vein from the groin extending to the left mid calf. The findings are consistent with positive nonoccluding acute DVT in the mid popliteal vein. The right appears negative,. Upon further questioning, the patient has typical features of obstructive sleep apnea that has not been evaluated in the past including loud snoring, witnessed apneas and chronic hypersomnia and sleepiness. She has had previous ALLERGIES to cephalosporins, Cipro and Levaquin. No reported angioedema or anaphylaxis. No history of lupus. Nausea vasculitis. Renal function is within normal limits. On today's evaluation of 04/15/2018, the patient has no respiratory distress. The patient was confirmed to have DVT of the lower extremity and pulmonary embolism and the patient remains on IV heparin. No pleurisy. No hemoptysis. Nevertheless, the patient is still diffuse rash throughout her body more so in lower extremities. There rash is more petechial in lower extremities bilaterally. TIKI was negative. Patient was placed on a combination of IV Solu- Medrol and Benadryl and there is no improvement in the rash itself. As such I think this is a petechial rash which could be either drug-induced/viral. Noted the patient was initially diagnosed having a bug bite in her left lower extremity and subsequently she was given a combination of Bactrim and clindamycin. This does not look to be a typical drug reaction from Bactrim. This doesn't look like it's erythema multiforme. We'll continue to follow. Will need a dermatology evaluation. The patient is being seen on 04/16/2018 for a follow-up. No specific complaints. The rash is somewhat subsided compared to yesterday. This is a drug-induced rash probably rates to Bactrim although the possibility of Dilantin induced rash cannot be completely occluded. Doing well otherwise. No cough or sputum production. No chest that is so wheezing. Still on IV heparin. We'll transition this patient to Xarelto today and stopped IV heparin. No other complaints otherwise for now. Dermatology consultation was requested regarding the diffuse erythematous rash with petechial components. Objective - Vital Signs Vital signs: Vital Signs Temp 97.4 F L 04/16/18 11:40 Pulse 70 04/16/18 11:40 Resp 18 04/16/18 11:40 BP 154/87 04/16/18 11:40 Pulse Ox 93 L 04/16/18 11:40 Intake & Output 04/15/18 04/16/18 04/16/18 18:59 06:59 18:59 Intake Total 973.314 249.851 920 Output Total 650 200 325 Balance 323.314 49.851 595 Weight 129.7 kg Intake: Intake, IV Titration 453.314 249.851 240 Amount Heparin Sod,Pork in 0.45% 353.314 249.851 NaCl 25,000 unit In 0.45 % NaCl 1 500ml.bag @ 18 UNITS/KG/HR 45.72 mls/hr IV .[id number] [facility] Rx#: [id number] Sodium Chloride 0.9% 1, 100 240 000 ml @ 20 mls/hr IV . Q24H [facility] Rx#:[id number] Oral 520 680 Output: Urine 650 200 325 Other: Voiding Method Toilet Toilet Toilet # Voids 2 1 1 # Bowel Movements 1 - Exam Morbidly obese BMI of 51.2., Comfortable likely distress. Not using excessive muscle breathing. Head exam was generally normal. There was no scleral icterus or corneal arcus. Mucous membranes were moist. Neck is supple and the patient has significant crowding of the posterior pharynx. There is no goiter or neck masses. Lungs sounds are diminished bilaterally. No wheezes overall currently crackles at this point in time. Cardiac exam revealed the PMI to be normally situated and sized. The rhythm was regular and no extrasystoles were noted during several minutes of auscultation. The first and second heart sounds were normal and physiologic splitting of the second heart sound was noted. There were no murmurs, rubs, clicks, or gallops. Abdomen is morbidly obese soft nontender. No direct tenderness. No rebound tenderness. No guarding. Organs cannot be accurately palpated. Extremities are swollen and there is trace pitting edema lower eczematous bilaterally. No cyanosis or clubbing. Skin the patient has diffuse erythematous macular papular rash with blanching and upper extremities and the trunk. Similar rash is present lower extremities and becomes more confluent and there are areas of petechial rash and lower extremity that are nonblanching. No open wounds or ulcerations. Neurologically the patient is awake and alert and is no focal neurological deficits. - Labs CBC & Chem 7: 04/16/18 05:52 04/16/18 05:52 Labs: Abnormal Lab Results - Last 24 Hours (Table) 04/15/18 04/16/18 04/16/18 Range/Units 13:09 05:52 05:52 WBC 11.9 H (3.8-10.6) k/uL Plt Count 129 L (150-450) k/uL Neutrophils # 9.2 H (1.3-7.7) k/uL APTT 56.6 H (22.0-30.0) sec Glucose 104 H (74-99) mg/dL 04/16/18 Range/Units 05:52 WBC (3.8-10.6) k/uL Plt Count (150-450) k/uL Neutrophils # (1.3-7.7) k/uL APTT 58.8 H (22.0-30.0) sec Glucose (74-99) mg/dL Microbiology - Last 24 Hours (Table) 04/14/18 15:21 Blood Culture - Preliminary Blood No Growth after 24 hours 04/14/18 15:42 Blood Culture - Preliminary Blood No Growth after 24 hours Assessment and Plan Plan: Assessment 1 acute right pulmonary embolism with a popliteal DVT involving left lower extremity/deep vein and a superficial venous thrombosis of the left lower extremity. Currently on IV heparin. Already status is stable. Brester status is also stable. The patient has a normal level is good ejection fraction with mild pulmonary hypertension. The patient remains on IV heparin and the patient will be changed to Xarelto today. 2 acute dyspnea/hypoxemia secondary to above, improving 3 morbid obesity with BMI 51.2 4 diffuse rash or to care in the upper extremities and trunk and more subtle petechial and confluent in lower extremities in the feet. Consider ALLERGIC reaction to antibiotics provided. Consider underlying vasculitis. Consider Dilantin reaction. Consider infections, very unlikely to be related to [place] spotted fever. 5 obstructive sleep apnea clinically suspected and is to be pursued on outpatient basis 6 hyperlipidemia 7 hypertension 8 hypothyroidism 9 seizure disorder 10 remote history of DVT 11 minimal troponin leak probably related to pulmonary embolism 12 mild degree of pulmonary hypertension with a preserved LV function, probably related to pulmonary embolism versus being chronic related to chronic hypoxemia sleep breathing disorder. Plan Start the patient is Xarelto 15 mg by mouth twice a day to be transitioned to 20 mg by mouth daily after 3 weeks. Stopped IV heparin. Monitor the rash. Dermatology consultation. Continue the steroids. We'll follow.
[2018-04-16] MEDS: RIVAROXABAN 15 MG TAB PO SCH (16:25)
[2018-04-16] MEDS: MONTELUKAST 10 MG TAB PO SCH (19:59)
[2018-04-16] MEDS: ALPRAZolam 0.25 MG TAB PO PRN (23:08)
--- NOTE | 2018-04-17 00:07 | PN ---
PROGRESS NOTE DATE OF SERVICE: 04/16/2018. REASON FOR FOLLOWUP: An allergic reaction to possible Bactrim and a question of cellulitis. INTERVAL HISTORY: The patient is afebrile. She is breathing comfortably. Denies having any chest pain or shortness of breath or cough. The rash has decreased and no diarrhea. EXAMINATION: Blood pressure 127/75 with a pulse of 72. Temperature 97.2. She is 93% on room air. General description is a middle aged female, lying in bed in no distress. Respiratory system: Unlabored breathing, clear to auscultation anteriorly. Heart S1, S2. Regular rate and rhythm. ABDOMEN: Soft, no tenderness. LABS: Hemoglobin is 14.3, white count 9.9, BUN of 17, creatinine 0.65. Blood culture has been negative. DIAGNOSTIC IMPRESSION AND PLAN: Patient with extensive maculopapular rash likely secondary to Bactrim that has been discontinued. The patient was treated in outpatient setting with possible cellulitis. Currently, no active cellulitis. White count elevated, more likely because of steroid effect and showing downward trend. No need for any systemic antibiotic therapy at this point. Continue with Solu-Medrol and Benadryl and Pepcid that can be switched to p.o. on discharge. Continue supportive care. MMODL / IJN: [id number] /
[2018-04-17] MEDS: LEVOTHYROXINE 125 MCG TAB PO SCH (06:47)
[2018-04-17] MEDS: methylPREDNISolone SOD SUCCI 125 MG/2 ML VIAL IV SCH (06:47)
[2018-04-17] MEDS: RIVAROXABAN 15 MG TAB PO SCH ×2 (06:48→16:05)
[2018-04-17] MEDS: SYMBICORT 160-4.5 MCG INHALER INHALATION SCH ×2 (06:52→13:50)
[2018-04-17 07:10] LABS: Basophils # (A) 0.1 k/uL (0-0.2); Basophils % (A) 1 %; Eosinophils # (A) 0.2 k/uL (0-0.7); Eosinophils % (A) 2 %; HCT 45.4 % (34.0-46.0); HGB 15.2 gm/dL (11.4-16.0); Lymphocytes # (A) 2.6 k/uL (1.0-4.8); Lymphocytes % (A) 22 %; MCHC 33.4 g/dL (31.0-37.0); Mean Platelet Volume 7.1; Monocytes # (A) 0.6 k/uL (0-1.0); Monocytes % (A) 5 %; Neutrophils % (A) 67 %; Platelet Count 147 k/uL (150-450); RBC 4.73 m/uL (3.80-5.40); RDW 15.2 % (11.5-15.5); WBC 11.9 k/uL (3.8-10.6)
[2018-04-17 07:20] LABS: Anion Gap 7 mmol/L; Blood Urea Nitrogen 18 mg/dL (7-17); Calcium 9.1 mg/dL (8.4-10.2); Carbon Dioxide 32 mmol/L (22-30); Chloride 103 mmol/L (98-107); Glucose 92 mg/dL (74-99); Potassium 5.6 mmol/L (3.5-5.1); Sodium 142 mmol/L (137-145)
[2018-04-17] MEDS: LISINOPRIL-HCTZ 10-12.5 MG 1 EACH TAB PO SCH (08:26)
[2018-04-17] MEDS: FAMOTIDINE 20 MG TAB PO SCH (08:26)
[2018-04-17] MEDS: GABAPENTIN 300 MG CAP PO SCH ×3 (08:27→20:04)
[2018-04-17] MEDS: PHENYTOIN SODIUM EXTENDED 100 MG CAP PO SCH ×2 (08:27→20:50)
[2018-04-17] MEDS: ATORVASTATIN 20 MG TAB PO SCH (08:28)
[2018-04-17] MEDS: LORATADINE 10 MG TAB PO SCH (08:28)
--- NOTE | 2018-04-17 10:39 | P.PN ---
Subjective Progress Note Date: 04/17/18 Principal diagnosis: Acute DVT and pulmonary embolism 62-year-old female patient, morbidly obese with a BMI of 51.2, who was recently seen at her primary care physician's office for some increased erythema in lower extremities bilaterally. The patient was suspected to have cellulitis and the patient was placed on a combination of Bactrim and clindamycin. Apparently this started up after an insect/bug bite in her left lower extremity. Within a few days after the antibiotic initiation, the patient developed a diffuse maculopapular rash involving throughout the body, more extensive in lower extremities however still quite extensive in the upper extremities, trunk, and chest and back. Note that the patient's lower extremity rash is more so of a petechial rash which is involving areas that is nonblanching. Upper extremities and trunk seems to be more so with the care of your nature. No open wounds or sores. The patient was also having increased shortness of breath and for that reason she presented herself to the emergency department. Note that in the MRSA problem the patient was also complaining of acute shortness of breath, tachycardia and she was also hypoxic. She was given a dose of steroids, Benadryl and Pepcid and following that she was admitted to the medical floor. There was a concern for pulmonary embolism. CT angios the chest was done that was of a low quality as the patient had suboptimal contrast enhancement of the pulmonary arteries. The CTA was interpreted as being positive for bilateral embolism to the lower lobes and the patient was started on IV heparin and the patient was asked to be seen by pulmonology for further advice. The patient gives a remote history of DVT lower extremities yet this has not been acute problem and the patient has been on no anticoagulation. As mentioned, she is morbidly obese. She has history of COPD, hypertension and hyperlipidemia and previous history of seizure disorder. on her labs, the patient had a posterior troponin of 0.23 respectively. Renal function was stable at creatinine of 0.9. The white cell count is at 17.6. The patient has a hemoglobin of 15.9. She has 3% eosinophils.. Electrodes are all within normal limits. Echocardiogram was completed and the patient was found to have a preserved LV function with an ejection fraction of 55-60%. RV was mildly enlarged. The patient's right atrium was normal size. The patient had a right ventricular systolic pressure measured to be around 38 mmHg. No pericardial effusion. Lower extremity Doppler done earlier today upon my request showed moderate occlusive DVT within the popliteal vein and there is also superficial venous thromboses within the saphenous vein from the groin extending to the left mid calf. The findings are consistent with positive nonoccluding acute DVT in the mid popliteal vein. The right appears negative,. Upon further questioning, the patient has typical features of obstructive sleep apnea that has not been evaluated in the past including loud snoring, witnessed apneas and chronic hypersomnia and sleepiness. She has had previous ALLERGIES to cephalosporins, Cipro and Levaquin. No reported angioedema or anaphylaxis. No history of lupus. Nausea vasculitis. Renal function is within normal limits. On today's evaluation of 04/15/2018, the patient has no respiratory distress. The patient was confirmed to have DVT of the lower extremity and pulmonary embolism and the patient remains on IV heparin. No pleurisy. No hemoptysis. Nevertheless, the patient is still diffuse rash throughout her body more so in lower extremities. There rash is more petechial in lower extremities bilaterally. TIKI was negative. Patient was placed on a combination of IV Solu- Medrol and Benadryl and there is no improvement in the rash itself. As such I think this is a petechial rash which could be either drug-induced/viral. Noted the patient was initially diagnosed having a bug bite in her left lower extremity and subsequently she was given a combination of Bactrim and clindamycin. This does not look to be a typical drug reaction from Bactrim. This doesn't look like it's erythema multiforme. We'll continue to follow. Will need a dermatology evaluation. The patient is being seen on 04/16/2018 for a follow-up. No specific complaints. The rash is somewhat subsided compared to yesterday. This is a drug-induced rash probably rates to Bactrim although the possibility of Dilantin induced rash cannot be completely occluded. Doing well otherwise. No cough or sputum production. No chest that is so wheezing. Still on IV heparin. We'll transition this patient to Xarelto today and stopped IV heparin. No other complaints otherwise for now. Dermatology consultation was requested regarding the diffuse erythematous rash with petechial components. Patient was reevaluated today on 04/17/2018, no active pulmonary symptoms, no cough no wheezing no shortness of breath no chest pain, patient noted earlier some blood while she was wiping, and she is known to have history of rectal fissure. Supposed to be seen by Dr. Mullins on outpatient basis, and she is supposed to undergo colonoscopy in the near future. Considering the patient is on anticoagulations therapy, may not be a bad idea to consider GI evaluation while inpatient. From the pulmonary perspective, patient is ready on Xarelto, and possibly could be discharged home if cleared by gastroenterology. Hemoglobin is 15.2 rest of the labs were noted to be unremarkable. Objective - Vital Signs Vital signs: Vital Signs Temp 97.4 F L 04/17/18 08:37 Pulse 69 04/17/18 08:37 Resp 18 04/17/18 08:37 BP 147/65 04/17/18 08:37 Pulse Ox 96 04/17/18 08:37 Intake & Output 04/16/18 04/17/18 04/17/18 18:59 06:59 18:59 Intake Total 1180 550 240 Output Total 1225 450 Balance -45 100 240 Weight 129.2 kg Intake: Intake, IV Titration 240 Amount Sodium Chloride 0.9% 1, 240 000 ml @ 20 mls/hr IV . Q24H [facility] Rx#:[id number] Oral 940 550 240 Output: Urine 1225 450 Other: Voiding Method Toilet Toilet Toilet # Voids 1 1 # Bowel Movements 1 1 - Exam Physical Exam: Revealed a 62-year-old, female, obese, in no distress. Head: Atraumatic, normocephalic. HEENT:[Neck is supple.] [No neck masses.] [No thyromegaly.] [No JVD.]. Definite crowding of the posterior pharynx, moist mucous membranes. PERRLA, EOMI. Chest: [Clear throughout, no crackles, no rhonchi, no wheezes.] Cardiac Exam: [Normal S1 and S2, no S3 gallop, no murmur.] Abdomen: [Obese, Soft, nontender, no megaly, no rebound, no guarding, normal bowel sounds.] Extremities:are swollen and there is trace pitting edema lower eczematous bilaterally. No cyanosis or clubbing. Neurological Exam: [No focal neurologic deficit.] Skin diffuse erythematous maculopapular rash with blanching all 4 upper extremities and the trunk. Similar rash noted on the lower extremities Psychiatric: Normal mood affect and mental status examination. Lymphatics: No lymphadenopathy. - Labs CBC & Chem 7: 04/17/18 06:52 04/17/18 06:52 Labs: Abnormal Lab Results - Last 24 Hours (Table) 04/17/18 04/17/18 Range/Units 06:52 06:52 WBC 11.9 H (3.8-10.6) k/uL Plt Count 147 L (150-450) k/uL Neutrophils # 8.0 H (1.3-7.7) k/uL Potassium 5.6 H (3.5-5.1) mmol/L Carbon Dioxide 32 H (22-30) mmol/L BUN 18 H (7-17) mg/dL Microbiology - Last 24 Hours (Table) 04/14/18 15:21 Blood Culture - Preliminary Blood No Growth after 48 hours 04/14/18 15:42 Blood Culture - Preliminary Blood No Growth after 48 hours Assessment and Plan Assessment: ssessment 1 acute right pulmonary embolism with a popliteal DVT involving left lower extremity/deep vein and a superficial venous thrombosis of the left lower extremity. Currently on IV heparin. Already status is stable. Brester status is also stable. The patient has a normal level is good ejection fraction with mild pulmonary hypertension. The patient remains on IV heparin and the patient will be changed to Xarelto today. 2 acute dyspnea/hypoxemia secondary to above, improving 3 morbid obesity with BMI 51.2 4 diffuse rash or to care in the upper extremities and trunk and more subtle petechial and confluent in lower extremities in the feet. Consider ALLERGIC reaction to antibiotics provided. Consider underlying vasculitis. Consider Dilantin reaction. Consider infections, very unlikely to be related to [place] spotted fever. 5 obstructive sleep apnea clinically suspected and is to be pursued on outpatient basis 6 hyperlipidemia 7 hypertension 8 hypothyroidism 9 seizure disorder 10 remote history of DVT 11 minimal troponin leak probably related to pulmonary embolism 12 mild degree of pulmonary hypertension with a preserved LV function, probably related to pulmonary embolism versus being chronic related to chronic hypoxemia sleep breathing disorder. 13 history of rectal fissures and intermittent episodes of bleeding probably exacerbated by being on heparin/Xarelto. May have to consider GI evaluation. Plan agree with present treatment plan, switched Solu-Medrol to Medrol Dosepak, consider discharge planning if cleared by gastroenterology. Time with Patient: Less than 30
[2018-04-17] MEDS: methylPREDNISolone 4 MG TAB TAPER PO SCH (12:32)
--- NOTE | 2018-04-17 17:11 | P.PN ---
Subjective Hospitalist fabrication lead covering for Dr. Blum from 04/10 until 04/20/2018 This is a pleasant 62 years old female with past medical history of hyperlipidemia, hypertension, seizure disorder, status post appendectomy, and former smoker. She presents to the emergency room for dyspnea of 2 days' duration. Patient states initially she had a block bite about a week ago after that she developed induration on the bite sites and along the line below its in the left lower leg medially and it was progressively towards the upper thigh. She went to the hospital and then to her doctor's where she was diagnosed with lymphangitis and started on the clindamycin and Bactrim. After about 4 doses of clindamycin she developed this rash which is petechial and confluent all over her body and extremities symmetrical and bilateral without itching. Patient states she has taken Bactrim before with no problems. However patient over the last 2 days she developed dyspnea, without chest pain in the ED patient was found to have dyspnea, tachycardia, and hypoxia. Patient was treated initially with steroids, Benadryl and Pepcid. Shows some interval improvement in her rash however she remained dyspneic and hypoxic and in view of her previous DVT as she was on aspirin for that CTPA was done which shows bilateral emboli so patient was admitted to the hospital with acute pulmonary embolism. Cardiology was been consulted for tachycardia and high troponin which couldn't be explained by the patient presentation of PE, infection, and other areas however recommended 2-D echo and treating the primary cause 04/17/2018 Patient was doing well today. No chest pain or dyspnea. Rash is improving significantly. Dermatological evaluation is recommended which could be corrected as an outpatient after they've been contacted by the staff. Patient looks stable from pulmonary standpoint however patient's reports possible bleeding per rectum versus anal fissure. Pulmonary team recommended GI evaluation Objective - Vital Signs Vital signs: Vital Signs Temp 98.5 F 04/17/18 16:28 Pulse 93 04/17/18 16:28 Resp 18 04/17/18 16:28 BP 139/66 04/17/18 16:28 Pulse Ox 93 L 04/17/18 16:28 Intake & Output 04/16/18 04/17/18 04/17/18 18:59 06:59 18:59 Intake Total 1180 550 716 Output Total 1225 450 300 Balance -45 100 416 Weight 129.2 kg Intake: Intake, IV Titration 240 Amount Sodium Chloride 0.9% 1, 240 000 ml @ 20 mls/hr IV . Q24H [facility] Rx#:[id number] Oral 940 550 716 Output: Urine 1225 450 300 Other: Voiding Method Toilet Toilet Toilet # Voids 1 1 1 # Bowel Movements 1 1 1 - Exam GENERAL: The patient is alert and oriented x3, not in any acute distress. Well developed, well nourished. HEENT: Pupils are round and equally reacting to light. EOMI. No scleral icterus. No conjunctival pallor. Normocephalic, atraumatic. No pharyngeal erythema. No thyromegaly. CARDIOVASCULAR: S1 and S2 present. No murmurs, rubs, or gallops. PULMONARY: Chest is clear to auscultation, no wheezing or crackles. Patient is tachypneic ABDOMEN: Soft, nontender, nondistended, normoactive bowel sounds. No palpable organomegaly. MUSCULOSKELETAL: No joint swelling or deformity. EXTREMITIES: No cyanosis, clubbing, or pedal edema. NEUROLOGICAL: Gross neurological examination did not reveal any focal deficits. SKIN: Petechial and confluent rashes, on the trunk and extremity, symmetrical. less pink and hot today - Labs CBC & Chem 7: 04/17/18 06:52 04/17/18 11:18 Labs: Abnormal Lab Results - Last 24 Hours (Table) 04/17/18 04/17/18 Range/Units 06:52 06:52 WBC 11.9 H (3.8-10.6) k/uL Plt Count 147 L (150-450) k/uL Neutrophils # 8.0 H (1.3-7.7) k/uL Potassium 5.6 H (3.5-5.1) mmol/L Carbon Dioxide 32 H (22-30) mmol/L BUN 18 H (7-17) mg/dL Microbiology - Last 24 Hours (Table) 04/14/18 15:21 Blood Culture - Preliminary Blood No Growth after 48 hours 04/14/18 15:42 Blood Culture - Preliminary Blood No Growth after 48 hours Assessment and Plan Plan: -Acute pulmonary embolism and DVT, continue with heparin drip as per protocol. Follow-up with pulmonary recommendation.pt is sa saturating 90% on 2 L/m oxygen. Venous Doppler positive for left lower extremity DVT -Tachycardia, with positive troponin, multifactorial mostly due to acute PE, versus infection. Puzzle [employer] has been consulted and recommended to do echo and treating the primary cause -Possible bleeding per rectum versus anal fissure. Check occult blood in the stool: Pending. Call for GI evaluation as patient on blood thinner -Cellulitis, possible ALLERGIC reaction to outpatient therapy mostly to clindamycin as patient states that she has taken Bactrim before with no problem. call ID consult -Rash petichal and confluent, on the trunk and extremities of one week duration , mostly secondary to ALLERGIC reaction to medications, no hematuria. Serum 8 and a is negative. Serum pand C-ANCEA are pending. rash looks improving -Mild hyponatremia continue to monitor -History of seizure continue with Dilantin, check level -History of hypothyroidism on levothyroxine 125 g daily, check TSH level -Hyperlipidemia continue with statin -Hypertension continue with lisinopril-hydrochlorothiazide DVT prophylaxis, patient is already on anticoagulation therapy GI prophylaxis Pepcid
[2018-04-17] MEDS: MONTELUKAST 10 MG TAB PO SCH (20:04)
[2018-04-17] MEDS: diphenhydrAMINE 50 MG/ML 1 ML VIAL IVP PRN (20:05)
[2018-04-17] MEDS ORDERED: CALCIUM CARBONATE 500 MG CHEWABLE PO PRN (22:41)
[2018-04-17] MEDS: SODIUM CHLORIDE 0.9% 1,000 ML IV SCH (23:08)
[2018-04-17] MEDS: PANTOPRAZOLE 40 MG/10 ML VIAL IVP SCH (23:26)
[2018-04-17] MEDS: ALPRAZolam 0.25 MG TAB PO PRN (23:30)
--- NOTE | 2018-04-18 04:00 | PN ---
PROGRESS NOTE DATE OF SERVICE: 04/17/2018. REASON FOR FOLLOWUP: Bilateral lower extremity cellulitis secondary to drug reaction. INTERVAL HISTORY: The patient is afebrile. She has been breathing comfortably. Denies significant chest pain. Itching has slightly decreased. No abdominal pain. No diarrhea. PHYSICAL EXAMINATION: Blood pressure 139/66, pulse of 93, temperature 98.5. She is 93% on room air. General description is a middle-aged female up in the bed in no distress. RESPIRATORY SYSTEM: Unlabored breathing. Clear to auscultation anteriorly. HEART: S1, S2. Regular rate and rhythm. ABDOMEN: Soft. No tenderness. Overall rash has decreased in intensity. LABS: BUN of 18, creatinine 0.71, hemoglobin 15.2, white count of 11.9. DIAGNOSTIC IMPRESSION AND PLAN: Patient with extensive rash, likely secondary to a drug reaction, more likely because of Bactrim; currently off the antibiotic. Continue with steroids and Benadryl. No need for systemic antibiotic on discharge. Continue with supportive care. MMODL / IJN: [id number] /
[2018-04-18 06:04] LABS: Basophils # (A) 0.1 k/uL (0-0.2); Basophils % (A) 1 %; Eosinophils # (A) 0.4 k/uL (0-0.7); Eosinophils % (A) 4 %; HCT 43.4 % (34.0-46.0); HGB 14.3 gm/dL (11.4-16.0); Lymphocytes # (A) 2.9 k/uL (1.0-4.8); Lymphocytes % (A) 28 %; MCH 31.6 pg (25.0-35.0); MCV 95.6 fL (80.0-100.0); Mean Platelet Volume 7.2; Monocytes # (A) 0.7 k/uL (0-1.0); Monocytes % (A) 7 %; Neutrophils # (A) 5.7 k/uL (1.3-7.7); Neutrophils % (A) 56 %; Platelet Count 144 k/uL (150-450); RBC 4.54 m/uL (3.80-5.40); RDW 15.2 % (11.5-15.5); WBC 10.1 k/uL (3.8-10.6)
[2018-04-18 06:10] LABS: Anion Gap 7 mmol/L; Blood Urea Nitrogen 18 mg/dL (7-17); Calcium 8.8 mg/dL (8.4-10.2); Carbon Dioxide 32 mmol/L (22-30); Chloride 101 mmol/L (98-107); Glucose 83 mg/dL (74-99); Potassium 4.4 mmol/L (3.5-5.1); Sodium 140 mmol/L (137-145)
[2018-04-18] MEDS: RIVAROXABAN 15 MG TAB PO SCH ×2 (06:49→16:06)
[2018-04-18] MEDS: LEVOTHYROXINE 125 MCG TAB PO SCH (06:50)
[2018-04-18] MEDS: SYMBICORT 160-4.5 MCG INHALER INHALATION SCH ×2 (07:13→12:29)
[2018-04-18] MEDS: LORATADINE 10 MG TAB PO SCH (08:07)
[2018-04-18] MEDS: PHENYTOIN SODIUM EXTENDED 100 MG CAP PO SCH (08:07)
[2018-04-18] MEDS: GABAPENTIN 300 MG CAP PO SCH ×2 (08:07→16:06)
[2018-04-18] MEDS: LISINOPRIL-HCTZ 10-12.5 MG 1 EACH TAB PO SCH (08:08)
[2018-04-18] MEDS: ATORVASTATIN 20 MG TAB PO SCH (08:08)
[2018-04-18] MEDS: PANTOPRAZOLE 40 MG/10 ML VIAL IVP SCH (08:08)
[2018-04-18] MEDS: methylPREDNISolone 4 MG TAB TAPER PO SCH (08:08)
--- NOTE | 2018-04-18 10:24 | P.CONS ---
History of Present Illness - Reason for Consult Consult date: 04/18/18 Rectal bleeding Requesting physician: Alexis E Sheet - History of Present Illness 62-year-old female past medical history of DVT requiring anticoagulation discontinued in 2011 admitted with shortness of breath and lower extremity cellulitis type features suspected drug reaction after receiving clindamycin and Bactrim in the outpatient setting for suspected cellulitis. Left lower extremity positive for DVT per venous Dopplers as well as bilateral pulmonary emboli per chest CT. Anticoagulation has been started. Consult was requested for rectal bleeding. 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 Yesterday she passed out bowel movement that was somewhat blood-tinged with no recurrence. She denies abdominal pain hematemesis melena fever chills or weight loss. She has a history of screening colonoscopy in 1997 that unfortunately resulted in a bowel perforation followed by bowel resection and ostomy which she had for 6 years. Prior to ostomy reversal she had a recent screening colonoscopy that resulted in another all perforation which prolonged her reversal for another one or 2 years. Patient is hesitant about colonoscopies considering her to previous screenings resulted in perforations. She is scheduled to be evaluated in the GI office in 2 weeks to discuss outpatient colonoscopy. Current white count 10.1. Hemoglobin 14.3. Platelet 144. She is receiving Xarelto twice daily; received a dose this morning. Review of Systems Constitutional: Denies fever, chills, sweats, weight gain, or loss. HEENT: Negative for migraines, blurred vision or loss, earaches, drainage, tinnitus, oral mucosal lesions, dysphagia, or odynophagia. CARDIAC: Negative for chest pain, arrhythmias, or palpitation. RESPIRATORY: Admitted with shortness of breath, denies hemoptysis, cough, or sputum production. GI: See HPI for pertinent findings. : Negative for hematuria, urgency, frequency, polyuria, or dysuria. GYNc: Denies possibility of . Negative vaginal discharge. MUSCULOSKELETAL: Negative for muscle aches, swelling, arthritis, and arthralgias. NEUROLOGIC: Negative for stroke or TIA. ENDOCRINE: Negative for thyroid problems. SKIN: Admitted with lower extremity rash swelling and itching. PSYCHIATRIC: Negative history for depression and anxiety Past Medical History Past Medical History: COPD, Hyperlipidemia, Hypertension, Seizure Disorder, Sleep Apnea/CPAP/BIPAP Additional Past Medical History / Comment(s): Morbid obesity, COPD, hypertension , hyperlipidemia, seizure disorder, obstructive sleep apnea, previous history of DVT of the lower extremity treated with warfarin back in 2011, hypertension, hypothyroidism, History of Any Multi-Drug Resistant Organisms: None Reported Past Surgical History: Appendectomy Additional Past Surgical History / Comment(s): Colonoscopy, colostectomy and colostomy post colonoscopy Past Psychological History: No Psychological Hx Reported Smoking Status: Former smoker (quit smoking in 1997 and she smoked 15 ppy) Past Alcohol Use History: None Reported Past Drug Use History: None Reported - Past Family History Father Family Medical History: Cancer Mother Family Medical History: CVA/TIA, Hypertension Additional Family Medical History / Comment(s): BRAIN ANEURYSM Medications and Allergies Home Medications Medication Instructions Recorded Confirmed Type ALPRAZolam [Xanax] 0.25 mg PO BID PRN 04/13/18 04/13/18 History Albuterol Inhaler [Ventolin Hfa 1 - 2 puff INHALATION RT-Q6H PRN 04/13/18 History Inhaler] Albuterol Nebulized (Conc) 2.5 mg INHALATION RT-Q4H PRN 04/13/18 04/13/18 History [Ventolin Nebulized (Conc)] Aspirin 325 mg PO DAILY 04/13/18 04/13/18 History Atorvastatin [Lipitor] 20 mg PO DAILY 04/13/18 04/13/18 History Cetirizine HCl [Zyrtec] 10 mg PO DAILY 04/13/18 04/13/18 History Clindamycin [Cleocin] 150 mg PO Q8H 04/13/18 04/13/18 History Cyclobenzaprine [Flexeril] 10 mg PO TID 04/13/18 04/13/18 History Gabapentin [Neurontin] 600 mg PO TID 04/13/18 04/13/18 History Levothyroxine Sodium [Synthroid] 125 mcg PO DAILY 04/13/18 04/13/18 History Lisinopril-Hctz 10-12.5 mg 1 tab PO DAILY 04/13/18 04/13/18 History [Zestoretic 10-12.5] Mometasone/Formoterol [Dulera 200 2 puff INHALATION BID 04/13/18 04/13/18 History Mcg/5 Mcg Inhaler] Montelukast [Singulair] 10 mg PO HS 04/13/18 04/13/18 History Phenytoin Sodium Extended 200 mg PO QAM 04/13/18 04/13/18 History [Dilantin] Phenytoin Sodium Extended 300 mg PO HS 04/13/18 04/13/18 History [Dilantin] Ranitidine HCl [Zantac] 150 mg PO DAILY 04/13/18 04/13/18 History Sulfamethox-Tmp 800-160Mg [Bactrim 1 tab PO BID 04/13/18 04/13/18 History DS 800-160 mg] diphenhydrAMINE [Benadryl] 25 mg PO BID PRN 04/13/18 04/13/18 History predniSONE 20 mg PO DAILY 04/13/18 04/13/18 History Allergies Allergy/AdvReac Type Severity Reaction Status Date / Time cephalexin [From Keflex] Allergy Rash/Hives Verified 04/13/18 19:12 ciprofloxacin [From Cipro] Allergy Rash/Hives Verified 04/13/18 19:12 clindamycin Allergy Rash/Hives Verified 04/13/18 19:12 levofloxacin [From Levaquin] Allergy Rash/Hives Verified 04/13/18 19:12 cyclobenzaprine AdvReac Rash/Hives Verified 04/13/18 19:12 [From Flexeril] Physical Exam Vitals: Vital Signs Temp Pulse Resp BP Pulse Ox 04/18/18 08:20 78 18 04/18/18 08:19 96.6 F L 78 18 129/66 93 L 04/18/18 04:00 98.2 F 60 17 115/56 91 L 04/18/18 00:00 66 17 04/17/18 23:58 98 F 66 17 120/63 95 04/17/18 20:00 98.0 F 70 17 135/70 93 L 04/17/18 16:28 98.5 F 93 18 139/66 93 L 04/17/18 16:05 74 18 04/17/18 11:46 97.3 F L 74 18 140/73 93 L 04/17/18 11:05 69 18 Intake and Output 04/17/18 04/18/18 04/18/18 22:59 06:59 14:59 Intake Total 636 250 240 Balance 636 250 240 Intake: Oral 636 250 240 Other: Voiding Method Toilet Toilet Toilet # Voids 1 2 Weight 126.5 kg General appearance: The patient is alert, oriented, in no acute distress. HET: Head is normocephalic and atraumatic. Pupils are equal and reactive. Oropharynx is clear without lesions. Neck: Supple without lymphadenopathy. Trachea midline. Heart: S1 S2. Regular rate and rhythm. Lungs: No crackles or wheezes are heard. Abdomen: Soft, nontender, nondistended with bowel sounds. No peritoneal signs. No palpable organomegaly or masses. Extremities: Bilateral lower legs with minimal swelling and redness no open wounds. Neurological: No focal deficits. Strength and sensation are grossly intact. Results CBC & Chem 7: 04/18/18 05:32 04/18/18 05:32 Labs: Abnormal Lab Results - Last 24 Hours (Table) 04/18/18 04/18/18 Range/Units 05:32 05:32 Plt Count 144 L (150-450) k/uL Carbon Dioxide 32 H (22-30) mmol/L BUN 18 H (7-17) mg/dL Microbiology - Last 24 Hours (Table) 04/14/18 15:21 Blood Culture - Preliminary Blood No Growth after 72 hours 04/14/18 15:42 Blood Culture - Preliminary Blood No Growth after 72 hours Assessment and Plan (1) Left leg DVT Current Visit: Yes Status: Acute Code(s): I82.402 - ACUTE EMBOLISM AND THOMBOS UNSP DEEP VEINS OF L LOW EXTREM SNOMED Code(s): 667480061 (2) Rectal bleeding Narrative/Plan: 62-year-old female admitted with acute lower extremity DVT and bilateral PE requiring anticoagulation with a known history of anal fissure and subsequent 2 bowel perforations 1997 and 2003 after undergoing screening colonoscopy resulting in ostomy with reversal. Rectal bleeding could be on the basis of rectal fistula however colonic pathology cannot be entirely excluded. Current Visit: Yes Status: Acute Code(s): K62.5 - HEMORRHAGE OF ANUS AND RECTUM SNOMED Code(s): 77109608 (3) History of DVT (deep vein thrombosis) Current Visit: Yes Status: Acute Code(s): Z86.718 - PERSONAL HISTORY OF OTHER VENOUS THROMBOSIS AND EMBOLISM SNOMED Code(s): 127256705 (4) Pulmonary embolism, bilateral Current Visit: Yes Status: Acute Code(s): I26.99 - OTHER PULMONARY EMBOLISM WITHOUT ACUTE COR PULMONALE SNOMED Code(s): 72217573 Plan: 1. Patient is hesitant about undergoing inpatient colonoscopy screening at this time considering her history of 2 previous perforations. Patient understands that screening is necessary to further evaluate her rectal bleeding. She received a dose of Xarelto this morning, in order for inpatient colonoscopy to be performed we request anticoagulation to be held for 48 hours. Patient verbalized she would like to complete her bowel prep at home and proceed with endoscopy on an outpatient basis; she has an appointment with Dr. Frye on 05/17/2018. We'll discuss patient's concerns with attending and pulmonology team. Continue with supportive measures and present medical therapy. We'll continue to follow with you. Stool softeners avoid constipation. Thank you for this kind referral and the opportunity to participate in the care of your patient. This consultation was discussed with Dr. Frye. The impression and plan of care have been directed as dictated.
--- NOTE | 2018-04-18 11:52 | P.PN ---
Subjective Progress Note Date: 04/18/18 Principal diagnosis: Acute DVT and pulmonary embolism 62-year-old female patient, morbidly obese with a BMI of 51.2, who was recently seen at her primary care physician's office for some increased erythema in lower extremities bilaterally. The patient was suspected to have cellulitis and the patient was placed on a combination of Bactrim and clindamycin. Apparently this started up after an insect/bug bite in her left lower extremity. Within a few days after the antibiotic initiation, the patient developed a diffuse maculopapular rash involving throughout the body, more extensive in lower extremities however still quite extensive in the upper extremities, trunk, and chest and back. Note that the patient's lower extremity rash is more so of a petechial rash which is involving areas that is nonblanching. Upper extremities and trunk seems to be more so with the care of your nature. No open wounds or sores. The patient was also having increased shortness of breath and for that reason she presented herself to the emergency department. Note that in the MRSA problem the patient was also complaining of acute shortness of breath, tachycardia and she was also hypoxic. She was given a dose of steroids, Benadryl and Pepcid and following that she was admitted to the medical floor. There was a concern for pulmonary embolism. CT angios the chest was done that was of a low quality as the patient had suboptimal contrast enhancement of the pulmonary arteries. The CTA was interpreted as being positive for bilateral embolism to the lower lobes and the patient was started on IV heparin and the patient was asked to be seen by pulmonology for further advice. The patient gives a remote history of DVT lower extremities yet this has not been acute problem and the patient has been on no anticoagulation. As mentioned, she is morbidly obese. She has history of COPD, hypertension and hyperlipidemia and previous history of seizure disorder. on her labs, the patient had a posterior troponin of 0.23 respectively. Renal function was stable at creatinine of 0.9. The white cell count is at 17.6. The patient has a hemoglobin of 15.9. She has 3% eosinophils.. Electrodes are all within normal limits. Echocardiogram was completed and the patient was found to have a preserved LV function with an ejection fraction of 55-60%. RV was mildly enlarged. The patient's right atrium was normal size. The patient had a right ventricular systolic pressure measured to be around 38 mmHg. No pericardial effusion. Lower extremity Doppler done earlier today upon my request showed moderate occlusive DVT within the popliteal vein and there is also superficial venous thromboses within the saphenous vein from the groin extending to the left mid calf. The findings are consistent with positive nonoccluding acute DVT in the mid popliteal vein. The right appears negative,. Upon further questioning, the patient has typical features of obstructive sleep apnea that has not been evaluated in the past including loud snoring, witnessed apneas and chronic hypersomnia and sleepiness. She has had previous ALLERGIES to cephalosporins, Cipro and Levaquin. No reported angioedema or anaphylaxis. No history of lupus. Nausea vasculitis. Renal function is within normal limits. On today's evaluation of 04/15/2018, the patient has no respiratory distress. The patient was confirmed to have DVT of the lower extremity and pulmonary embolism and the patient remains on IV heparin. No pleurisy. No hemoptysis. Nevertheless, the patient is still diffuse rash throughout her body more so in lower extremities. There rash is more petechial in lower extremities bilaterally. TIKI was negative. Patient was placed on a combination of IV Solu- Medrol and Benadryl and there is no improvement in the rash itself. As such I think this is a petechial rash which could be either drug-induced/viral. Noted the patient was initially diagnosed having a bug bite in her left lower extremity and subsequently she was given a combination of Bactrim and clindamycin. This does not look to be a typical drug reaction from Bactrim. This doesn't look like it's erythema multiforme. We'll continue to follow. Will need a dermatology evaluation. The patient is being seen on 04/16/2018 for a follow-up. No specific complaints. The rash is somewhat subsided compared to yesterday. This is a drug-induced rash probably rates to Bactrim although the possibility of Dilantin induced rash cannot be completely occluded. Doing well otherwise. No cough or sputum production. No chest that is so wheezing. Still on IV heparin. We'll transition this patient to Xarelto today and stopped IV heparin. No other complaints otherwise for now. Dermatology consultation was requested regarding the diffuse erythematous rash with petechial components. Patient was reevaluated today on 04/17/2018, no active pulmonary symptoms, no cough no wheezing no shortness of breath no chest pain, patient noted earlier some blood while she was wiping, and she is known to have history of rectal fissure. Supposed to be seen by Dr. Mullins on outpatient basis, and she is supposed to undergo colonoscopy in the near future. Considering the patient is on anticoagulations therapy, may not be a bad idea to consider GI evaluation while inpatient. From the pulmonary perspective, patient is ready on Xarelto, and possibly could be discharged home if cleared by gastroenterology. Hemoglobin is 15.2 rest of the labs were noted to be unremarkable. The patient is seen again today 04/18/2018 in follow-up on the selective care unit. She is awake and alert in no acute distress. She denies any worsening shortness of breath, cough or congestion. She is maintaining good O2 saturations in the 90s on room air. She's been afebrile. Hemodynamically stable. She has been transitioned to Xarelto. There is concern regarding possible rectal bleeding. She has been seen by GI services. The plan is for outpatient workup. Hemoglobin 14.3. Objective - Vital Signs Vital signs: Vital Signs Temp 96.6 F L 04/18/18 08:19 Pulse 78 04/18/18 08:20 Resp 18 04/18/18 08:20 BP 129/66 04/18/18 08:19 Pulse Ox 93 L 04/18/18 08:19 Intake & Output 04/17/18 04/18/18 04/18/18 18:59 06:59 18:59 Intake Total 952 650 240 Output Total 300 Balance 652 650 240 Weight 126.5 kg Intake: Oral 952 650 240 Output: Urine 300 Other: Voiding Method Toilet Toilet Toilet # Voids 1 2 # Bowel Movements 1 - Exam GENERAL EXAM: Alert, active, comfortable in no apparent distress. HEAD: Normocephalic. EYES: Normal reaction of pupils, equal size. NOSE: Clear with pink turbinates. THROAT: No erythema or exudates. NECK: No masses, no JVD. CHEST: No chest wall deformity. LUNGS: Equal air entry with no crackles, wheeze, rhonchi or dullness. CVS: S1 and S2 normal with no audible murmur, regular rhythm. ABDOMEN: No hepatosplenomegaly, normal bowel sounds, no guarding or rigidity. SPINE: No scoliosis or deformity SKIN: No rashes CENTRAL NERVOUS SYSTEM: No focal deficits, tone is normal in all 4 extremities. EXTREMITIES: There is no peripheral edema. No clubbing, no cyanosis. Peripheral pulses are intact. - Labs CBC & Chem 7: 04/18/18 05:32 04/18/18 05:32 Labs: Abnormal Lab Results - Last 24 Hours (Table) 04/18/18 04/18/18 Range/Units 05:32 05:32 Plt Count 144 L (150-450) k/uL Carbon Dioxide 32 H (22-30) mmol/L BUN 18 H (7-17) mg/dL Microbiology - Last 24 Hours (Table) 04/14/18 15:21 Blood Culture - Preliminary Blood No Growth after 72 hours 04/14/18 15:42 Blood Culture - Preliminary Blood No Growth after 72 hours Assessment and Plan Assessment: Assessment 1 acute right pulmonary embolism with a popliteal DVT involving left lower extremity/deep vein and a superficial venous thrombosis of the left lower extremity. Currently on Xarelto. 2 acute dyspnea/hypoxemia secondary to above, improving 3 morbid obesity with BMI 51.2 4 diffuse rash or to care in the upper extremities and trunk and more subtle petechial and confluent in lower extremities in the feet. Consider ALLERGIC reaction to antibiotics provided. Resolved. 5 obstructive sleep apnea clinically suspected and is to be pursued on outpatient basis 6 hyperlipidemia 7 hypertension 8 hypothyroidism 9 seizure disorder 10 remote history of DVT 11 minimal troponin leak probably related to pulmonary embolism 12 mild degree of pulmonary hypertension with a preserved LV function, probably related to pulmonary embolism versus being chronic related to chronic hypoxemia sleep breathing disorder. 13 history of rectal fissures and intermittent episodes of bleeding probably exacerbated by being on heparin/Xarelto. May have to consider GI evaluation. Plan The patient was seen and evaluated by Dr. Chowdhury. She is stable from the pulmonary standpoint. The plan is for probable EGD/colonoscopy in the outpatient setting. Until then she'll remain on Xarelto, Medrol Dosepak and her pulmonary medications. We'll see her in the office in 1-2 weeks' time. I, the cosigning physician, performed a history & physical examination of the patient. Lungs sounds are clear. Maintaining good O2 saturations in the 90s on room air. I discussed the assessment and plan of care with my nurse practitioner, Ronda Rodney. I attest to the above note as dictated by her.
[2018-04-18 14:09] LABS: C-ANCA <1:20 Titer (<1:20)
[2018-04-18 15:45] VITALS: BP 136/63; PULSE 71; RESP 18; TEMP 97
--- NOTE | 2018-04-18 18:10 | P.DS ---
Providers Date of admission: 04/13/18 22:40 Attending physician: Alcides Blum Consults: 04/13/18 22:37 Consult Physician Routine Consulting Provider: Mady Nicholas Consult Reason/Comments: Pulmonary Embolism Do you want consulting provider notified?: Yes 04/13/18 23:22 Consult Physician Routine Consulting Provider: [facility] Consult Reason/Comments: PE; Elevated Troponin Do you want consulting provider notified?: Yes 04/14/18 15:02 Consult Physician Routine Consulting Provider: Jackie Carmona Consult Reason/Comments: Allergic Reaction Do you want consulting provider notified?: Yes 04/15/18 10:18 Consult Physician Routine Consulting Provider: Sam Ware Consult Reason/Comments: Diffuse rash Do you want consulting provider notified?: Yes 04/18/18 07:00 Consult Physician Routine Consulting Provider: Luz Elena Frye Consult Reason/Comments: anticoagulant therapy-diverticulitis,fissure Do you want consulting provider notified?: Yes, Notify in am Primary care physician: Mani Ceja [facility] Course: Hospitalist operations manager/coordinator covering for Dr. Blum from 04/10 until 04/20/2018 This is a pleasant 62 years old female with past medical history of hyperlipidemia, hypertension, seizure disorder, status post appendectomy, and former smoker. She presents to the emergency room for dyspnea of 2 days' duration. Patient states initially she had a block bite about a week ago after that she developed induration on the bite sites and along the line below its in the left lower leg medially and it was progressively towards the upper thigh. She went to the hospital and then to her doctor's where she was diagnosed with lymphangitis and started on the clindamycin and Bactrim. After about 4 doses of clindamycin she developed this rash which is petechial and confluent all over her body and extremities symmetrical and bilateral without itching. Patient states she has taken Bactrim before with no problems. However patient over the last 2 days she developed dyspnea, without chest pain in the ED patient was found to have dyspnea, tachycardia, and hypoxia. Patient was treated initially with steroids, Benadryl and Pepcid. Shows some interval improvement in her rash however she remained dyspneic and hypoxic and in view of her previous DVT as she was on aspirin for that CTPA was done which shows bilateral emboli so patient was admitted to the hospital with acute pulmonary embolism. Cardiology was been consulted for tachycardia and high troponin which could be explained by the patient presentation of PE, infection, and other areas however recommended 2-D echo and treating the primary cause, echo showed EF 55-60%. Patient was treated with heparin drip and later on this patient is a well-developed patient showed interval improvement and her symptoms improved on the day of discharge patient denies any chest pain denies shortness of breath no active bleeding. No abdominal pain. Prescription for Zoloft as provided for the patient as 15 mg twice a day for a total of 2 weeks followed by 20 mg daily as per pulmonary recommendation patient verbalized understanding and acceptance to this recommendation. GI evaluated the patient for patient is a known history of anal fissure and history of bowel perforation in 1997 and 2003. However given the acuity of her PE and patient on 0, GI recommended holding Xalatan for 2 days or to 48 hours prior to the colonoscopy. Colonoscopy was recommended as an outpatient by GI team and changes made for the patient with GI office. Patient on presentation she has a T-current rash and affluent symmetrical in both upper and lower extremity and trunk which is started after she took 4 doses of clindamycin and Bactrim, she is not sure if his due to drug reaction. Patient states that she's taken Bactrim before. Patient should rash was improving, however patient was also on steroids. On the day of discharge was significantly improved into the degree that is almost faint pinkish remaining . dermatology appointment was made for the patient upon discharge. Patient was cleared by pulmonary, cardiology and GI team for discharge Patient management plan was discussed with the patient in detail/verbalized understanding and acceptance. Prescription was provided for the patient's with demonstration provided of the importance of gastric treatment and she looks compliant stating that she will follow-up recommendation Patient is found stable and can be discharged home however she needs follow-up as an outpatient GENERAL: The patient is alert and oriented x3, not in any acute distress. Well developed, well nourished. HEENT: Pupils are round and equally reacting to light. EOMI. No scleral icterus. No conjunctival pallor. Normocephalic, atraumatic. No pharyngeal erythema. No thyromegaly. CARDIOVASCULAR: S1 and S2 present. No murmurs, rubs, or gallops. PULMONARY: Chest is clear to auscultation, no wheezing or crackles. ABDOMEN: Soft, nontender, nondistended, normoactive bowel sounds. No palpable organomegaly. MUSCULOSKELETAL: No joint swelling or deformity. EXTREMITIES: No cyanosis, clubbing, or pedal edema. NEUROLOGICAL: Gross neurological examination did not reveal any focal deficits. SKIN: faint rashes on extremity and trunk, improving significantly Plan - Discharge Summary New Discharge Prescriptions: New Calcium Carbonate [Tums] 1,000 mg PO QID PRN #0 chew PRN Reason: Heartburn Pantoprazole [Protonix] 40 mg PO DAILY #30 tablet. Rivaroxaban [Xarelto] 15 mg PO BID-W/MEALS 18 Days #0 tab methylPREDNISolone Dose Pack [Medrol Dose Pack] 20 mg PO DAILY #10 tab Continue Albuterol Inhaler [Ventolin Hfa Inhaler] 1 - 2 puff INHALATION RT-Q6H PRN PRN Reason: Shortness Of Breath Albuterol Nebulized (Conc) [Ventolin Nebulized (Conc)] 2.5 mg INHALATION RT- Q4H PRN PRN Reason: Shortness Of Breath ALPRAZolam [Xanax] 0.25 mg PO BID PRN PRN Reason: Anxiety Aspirin 325 mg PO DAILY Atorvastatin [Lipitor] 20 mg PO DAILY Cetirizine HCl [Zyrtec] 10 mg PO DAILY Cyclobenzaprine [Flexeril] 10 mg PO TID diphenhydrAMINE [Benadryl] 25 mg PO BID PRN PRN Reason: Allergic Reaction Gabapentin [Neurontin] 600 mg PO TID Levothyroxine Sodium [Synthroid] 125 mcg PO DAILY Lisinopril-Hctz 10-12.5 mg [Zestoretic 10-12.5] 1 tab PO DAILY Mometasone/Formoterol [Dulera 200 Mcg/5 Mcg Inhaler] 2 puff INHALATION BID Montelukast [Singulair] 10 mg PO HS Phenytoin Sodium Extended [Dilantin] 200 mg PO QAM Phenytoin Sodium Extended [Dilantin] 300 mg PO HS Discontinued predniSONE 20 mg PO DAILY Ranitidine HCl [Zantac] 150 mg PO DAILY Sulfamethox-Tmp 800-160Mg [Bactrim DS 800-160 mg] 1 tab PO BID Clindamycin [Cleocin] 150 mg PO Q8H Discharge Medication List ALPRAZolam [Xanax] 0.25 mg PO BID PRN 04/13/18 [History] Albuterol Inhaler [Ventolin Hfa Inhaler] 1 - 2 puff INHALATION RT-Q6H PRN [History] Albuterol Nebulized (Conc) [Ventolin Nebulized (Conc)] 2.5 mg INHALATION RT-Q4H PRN 04/13/18 [History] Aspirin 325 mg PO DAILY 04/13/18 [History] Atorvastatin [Lipitor] 20 mg PO DAILY 04/13/18 [History] Cetirizine HCl [Zyrtec] 10 mg PO DAILY 04/13/18 [History] Cyclobenzaprine [Flexeril] 10 mg PO TID 04/13/18 [History] Gabapentin [Neurontin] 600 mg PO TID 04/13/18 [History] Levothyroxine Sodium [Synthroid] 125 mcg PO DAILY 04/13/18 [History] Lisinopril-Hctz 10-12.5 mg [Zestoretic 10-12.5] 1 tab PO DAILY 04/13/18 [History ] Mometasone/Formoterol [Dulera 200 Mcg/5 Mcg Inhaler] 2 puff INHALATION BID 04/13 [History] Montelukast [Singulair] 10 mg PO HS 04/13/18 [History] Phenytoin Sodium Extended [Dilantin] 200 mg PO QAM 04/13/18 [History] Phenytoin Sodium Extended [Dilantin] 300 mg PO HS 04/13/18 [History] diphenhydrAMINE [Benadryl] 25 mg PO BID PRN 04/13/18 [History] Calcium Carbonate [Tums] 1,000 mg PO QID PRN #0 chew 04/18/18 [Rx] Pantoprazole [Protonix] 40 mg PO DAILY #30 tablet. 04/18/18 [Rx] Rivaroxaban [Xarelto] 15 mg PO BID-W/MEALS 18 Days #0 tab 04/18/18 [Rx] methylPREDNISolone Dose Pack [Medrol Dose Pack] 20 mg PO DAILY #10 tab 04/18/18 [Rx] Follow up Appointment(s)/Referral(s): Clark Dailey MD [STAFF PHYSICIAN] - As Needed ([address] Dailey- office to call with appointment.) Sam Ware MD [STAFF PHYSICIAN] - 04/21/18 11:30 am Luz Elena Frye MD [STAFF PHYSICIAN] - 05/17/18 2:15 pm Mani Ceja MD [Primary Care Provider] - 04/21/18 10:30 am (With Ruth HANNAH. ) Mady Nicholas MD [STAFF PHYSICIAN] - 04/27/18 2:00 pm (Dr. Nicholas is not in office. Ronda Rodney NP will see you.) Patient Instructions/Handouts: Pulmonary Embolism (DC), Deep Venous Thrombosis (DC), Safe Use of Anticoagulants (DC) Activity/Diet/Wound Care/Special Instructions: Continuous cardiac diet. Activity as tolerated Discharge Disposition: HOME WITH HOME HEALTH SERVICES
[2018-04-18] MEDS ORDERED: SENNOSIDES-DOCUSATE SODIUM 1 EACH TAB PO SCH (21:00)
--- NOTE | 2018-04-18 22:35 | PN ---
PROGRESS NOTE DATE OF SERVICE: 04/18/2018 REASON FOR FOLLOWUP: Rash, drug-related, and a question of cellulitis. INTERVAL HISTORY: The patient was seen on rounds earlier this afternoon. The patient has been afebrile. She has been breathing comfortably. The rash has significantly improved. No chest pain. No abdominal pain. No diarrhea. PHYSICAL EXAMINATION: Blood pressure 136/63 with a pulse of 71, temperature 97. She is 93% on room air. General description is a middle-aged female up in the bed in no distress. RESPIRATORY SYSTEM: Unlabored breathing. Clear to auscultation anteriorly. HEART: S1, S2. Regular rate and rhythm. ABDOMEN: Soft. No tenderness. EXTREMITIES: Rash has improved. DIAGNOSTIC IMPRESSION AND PLAN: Patient with a rash secondary to Bactrim, which has been discontinued, with overall improvement. Finish therapy with Medrol Dosepak. No evidence of any cellulitis. No need for antibiotic on discharge. MMODL / IJN: [id number] /
[2018-04-19] MEDS ORDERED: PANTOPRAZOLE 40 MG TABLET PO SCH (09:00)
== END 2018-04-18 17:24 | disposition home health service (06) | DRG 176 ==
LOC: EC 18:37 → 6SEL 22:40
PROVIDERS: ADMIT Hospitalist; ATTEND Hospitalist
DX: I26.99 Other pulmonary embolism without acute cor pulmonale (principal); E87.1 Hypo-osmolality and hyponatremia; I82.432 Acute embolism and thrombosis of left popliteal vein; I82.812 Embolism and thrombosis of superficial veins of left lower extremity; K62.5 Hemorrhage of anus and rectum; L03.115 Cellulitis of right lower limb; L03.116 Cellulitis of left lower limb; Z68.43 Body mass index [BMI] 50.0-59.9, adult; E03.9 Hypothyroidism, unspecified; E66.01 Morbid (severe) obesity due to excess calories; E78.5 Hyperlipidemia, unspecified; G40.909 Epilepsy, unspecified, not intractable, without status epilepticus; G47.33 Obstructive sleep apnea (adult) (pediatric); I10 Essential (primary) hypertension; I27.20 Pulmonary hypertension, unspecified; J44.9 Chronic obstructive pulmonary disease, unspecified; L27.0 Generalized skin eruption due to drugs and medicaments taken internally; R09.02 Hypoxemia; T37.0X5A Adverse effect of sulfonamides, initial encounter; W57.XXXA Bitten or stung by nonvenomous insect and other nonvenomous arthropods, initial encounter; Z79.82 Long term (current) use of aspirin; Z79.899 Other long term (current) drug therapy; Z82.49 Family history of ischemic heart disease and other diseases of the circulatory system; Z87.891 Personal history of nicotine dependence; Z88.1 Allergy status to other antibiotic agents; Z90.49 Acquired absence of other specified parts of digestive tract
CPT/HCPCS: 36415; 71046; 71275; 80048; 80053; 80185; 81001; 82272; 82550; 82553; 84132; 84484; 85025; 85610; 85730; 86038; 86255; 87040; 93005; 93306; 93970; 94640; 94760; 96361; 96365; 96374; 96375; 99285

== ENCOUNTER → 2018-06-01 | Outpatient (CLI) | payer MEDICARE ==
--- NOTE | 2018-06-08 16:13 | MM ---
Reason for exam: screening (asymptomatic). Last mammogram was performed 2 years ago. History: Patient is postmenopausal. MG Screening Mammo w CAD Bilateral CC and MLO view(s) were taken. XCCL view(s) were taken of the left breast. Prior study comparison: June 03, 2016, bilateral MG 3d screening mammo w/cad. January 22, 2014, bilateral digital screening mammo w/CAD. May 18, 2012, right diagnostic mammogram w/CAD. There are scattered fibroglandular densities. There is a similar rounded circumscribed right breast mass back to 2011. There are benign appearing bilateral calcifications. No significant abnormality. No significant changes when compared with prior studies. ASSESSMENT: Benign, BI-RAD 2 RECOMMENDATION: Routine screening mammogram of both breasts in 1 year.
== END ==
LOC: RADMAMWWP 11:49
PROVIDERS: ATTEND Pediatrics
DX: Z12.31 Encounter for screening mammogram for malignant neoplasm of breast (principal)
CPT/HCPCS: 77067

== ENCOUNTER → 2018-07-20 | Outpatient (CLI) | payer MEDICARE ==
--- NOTE | 2018-07-20 16:49 | US ---
EXAMINATION TYPE: US venous doppler duplex LE LT DATE OF EXAM: 07/20/2018 12:29 PM COMPARISON: NONE CLINICAL HISTORY: 62-year-old female Z86.718 HX OF DVT. History of DVT left leg. On Xarelto since Mar. SIDE PERFORMED: Left TECHNIQUE: The lower extremity deep venous system is examined utilizing real time linear array sonog marcos with graded compression, doppler sonography and color-flow sonography. FINDINGS: VESSELS IMAGED: External Iliac Vein (EIV) Common Femoral Vein Deep Femoral Vein Femoral Vein Popliteal Vein Left Leg: *Positive for non-occluding DVT left popliteal vein. Thready flow with partial compression left mid popliteal vein as on prior exam IMPRESSION: Nonocclusive, chronic DVT redemonstrated left popliteal vein. Scanning from the groin to the knee. No appreciable progression in clot.
== END | disposition home or self-care (01) ==
LOC: RADUSWWP 11:58
PROVIDERS: ATTEND Pediatrics
DX: I82.532 Chronic embolism and thrombosis of left popliteal vein (principal)

== ENCOUNTER 2018-07-26 08:49 | Day surgery (SDC) | payer MEDICARE ==
[2018-07-24 09:53] VITALS: BMI 49.9
[~2018-07-26 08:49] MED LIST: LACTATED RINGERS 1,000 ML IV SCH
[2018-07-26 09:31] VITALS: RESP 16; TEMP 96.6
[2018-07-26] MEDS ORDERED: PROPOFOL 10 MG/ML 20 ML VIAL IV ONE (09:59)
[2018-07-26 10:28] VITALS: BP 117/78
--- NOTE | 2018-07-26 10:28 | P.PCN ---
Date of Procedure: 07/26/18 Procedure(s) Performed: BRIEF HISTORY: Patient is a 62-year-old pleasant female, scheduled for an elective colonoscopy as a part of a evaluation of positive stool cologuard followed by a CT colonoscopy that showed a 1.3 cm polyp in the ascending colon. The patient had prior history of colonoscopy, the Sol by perforation on 2 different occasions requiring surgery in 1999 and 2003 respectively. Because of the findings of polypoid recent CT colonoscopy, she is scheduled for an elective colonoscopy today. PROCEDURE PERFORMED: Colonoscopy with snare polypectomy. PREOPERATIVE DIAGNOSIS: Positive stool cologuard, and positive CTcolonography. IV sedation per Anesthesia. PROCEDURE: After informed consent was obtained, the patient, was brought into the endoscopy unit. IV sedation was administered by Anesthesia under continuous monitoring. Digital rectal examination was normal. Initially the Olympus CF- 160 flexible video colonoscope was then inserted in the rectum, gradually advanced into the cecum without any difficulty. Careful examination was performed as the scope was gradually being withdrawn. Ileocecal valve and the appendiceal orifice were visualized and appeared normal. Prep was excellent. Mucosa of the cecum, appeared normal. In the ascending colon there were 2 polyps measuring 5 mm in size both of which were removed by snare polypectomy. In the descending colon there was a 5 mm sessile polyp removed by snare polypectomy. Rest of the ascending colon, transverse colon, descending colon, sigmoid colon, and rectum appeared normal. In the distal rectum there was a 3- 4 mm polyp that was removed by snare polypectomy. Moderate diverticulosis seen. Retroflexion was performed in the rectum and no lesions were seen. The patient tolerated the procedure well. IMPRESSION: 5 mm sessile ascending colon polyps 2 status post polypectomy 5 mm colon polyp status post snare polypectomy 3-4 mm distal rectal polyp status post polypectomy Scattered diverticulosis RECOMMENDATIONS: Findings of this examination were discussed with the patient as well as her family. She was advised to follow with the biopsy results. Based the biopsy results and can have a repeat colonoscopy in 5 years.
[2018-07-26 11:04] VITALS: PULSE 63
== END 2018-07-26 11:22 | disposition home or self-care (01) ==
LOC: ORWHC2ENDO 08:49
PROVIDERS: ATTEND Internal Medicine Gastroenterology
DX: Z12.11 Encounter for screening for malignant neoplasm of colon (principal); K62.1 Rectal polyp; D12.2 Benign neoplasm of ascending colon; K63.5 Polyp of colon; K57.30 Diverticulosis of large intestine without perforation or abscess without bleeding; I10 Essential (primary) hypertension; E78.5 Hyperlipidemia, unspecified; K21.9 Gastro-esophageal reflux disease without esophagitis; J45.909 Unspecified asthma, uncomplicated; Z79.899 Other long term (current) drug therapy; G47.33 Obstructive sleep apnea (adult) (pediatric); Z86.718 Personal history of other venous thrombosis and embolism; Z86.711 Personal history of pulmonary embolism; Z88.8 Allergy status to other drugs, medicaments and biological substances; Z88.2 Allergy status to sulfonamides; Z88.1 Allergy status to other antibiotic agents; Z88.3 Allergy status to other anti-infective agents; Z79.01 Long term (current) use of anticoagulants; Z99.89 Dependence on other enabling machines and devices
CPT/HCPCS: 45385; 88305; J2704

== ENCOUNTER → 2019-06-12 | Outpatient (CLI) | payer MEDICARE ==
--- NOTE | 2019-06-13 10:11 | MM ---
Reason for exam: screening (asymptomatic). Last mammogram was performed 1 year ago. History: Patient is postmenopausal. Physical Findings: A clinical breast exam by your physician is recommended on an annual basis and results should be correlated with mammographic findings. MG 3D Screening Mammo W/Cad Bilateral CC, MLO, and XCCL view(s) were taken. Prior study comparison: June 01, 2018, bilateral MG screening mammo w CAD. June 03, 2016, bilateral MG 3d screening mammo w/cad. There are scattered fibroglandular densities. Stable benign calcifications. There is no discrete abnormality. No significant changes when compared with prior studies. ASSESSMENT: Benign, BI-RAD 2 RECOMMENDATION: Routine screening mammogram of both breasts in 1 year.
== END | disposition home or self-care (01) ==
LOC: RADMAMWWP 07:55
PROVIDERS: ATTEND Pediatrics
DX: Z12.31 Encounter for screening mammogram for malignant neoplasm of breast (principal)
CPT/HCPCS: 77063; 77067

== ENCOUNTER 2022-05-10 15:08 | Emergency (ER) | payer MEDICARE ==
[2022-05-10 15:28] VITALS: TEMP 98.2
--- NOTE | 2022-05-10 15:55 | ED ---
General Adult HPI - General Chief complaint: Extremity Injury, Lower Stated complaint: Fall,Leg Pain,Blood thinner Time Seen by Provider: 05/10/22 15:35 Source: patient Mode of arrival: ambulatory Limitations: no limitations - History of Present Illness Initial comments: Patient is a 66-year-old female presents the emergency room with complaints of left lower extremity pain. She reports that she fell at home while walking down the stairs 3 days ago and since that time she has had increased pain and redness to her lower anterior extremity. She reports that she is concerned regarding the redness and swelling as she has a history of significant lower extremity DVT along with pulmonary emboli. She is on Xarelto and denies missing any of her Xarelto doses. She denies any range of motion impairment in her left lower extremity numbness or tingling. She states she had followed up with her primary care provider after the fall who placed her on steroids but she is unsure as to why. She states that her primary care provider also checked both hips for fractures and reports that x-rays were negative. She reports some mild abrasions to her right lower extremity but denies any pain in that joint. She denies any chest pain, shortness of breath, fevers, chills, wounds or other focal neural deficits. She denies any head trauma at the time of the fall. In addition to her DVT and PE history she has a past medical history significant for hypertension, hyperlipidemia, hypothyroidism, sleep apnea, COPD, seizures, lower back pain, osteoarthritis and morbid obesity. - Related Data Home Medications Medication Instructions Recorded Confirmed ALPRAZolam [Xanax] 0.25 mg PO BID PRN 04/13/18 07/26/18 Albuterol Inhaler [Ventolin Hfa 2 puff INHALATION BID 04/13/18 07/26/18 Inhaler] Atorvastatin [Lipitor] 20 mg PO DAILY 04/13/18 07/26/18 Cetirizine HCl [Zyrtec] 10 mg PO DAILY 04/13/18 07/26/18 Levothyroxine Sodium [Synthroid] 125 mcg PO DAILY 04/13/18 07/26/18 Lisinopril-Hctz 10-12.5 mg 1 tab PO DAILY 04/13/18 07/26/18 [Zestoretic 10-12.5] Mometasone/Formoterol [Dulera 200 2 puff INHALATION BID 04/13/18 07/26/18 Mcg-5 Mcg Inhaler] Montelukast [Singulair] 10 mg PO HS 04/13/18 07/26/18 Phenytoin Sodium Extended 200 mg PO QAM 04/13/18 07/26/18 [Dilantin] Phenytoin Sodium Extended 300 mg PO HS 04/13/18 07/26/18 [Dilantin] Gabapentin [Neurontin] 300 mg PO TID 07/24/18 07/26/18 Rivaroxaban [Xarelto] 20 mg PO DAILY 07/24/18 07/24/18 Sennosides [Senokot] 2 tab PO HS 07/24/18 07/26/18 Previous Rx's Medication Instructions Recorded Pantoprazole [Protonix] 40 mg PO DAILY #30 tablet. 04/18/18 Allergies Allergy/AdvReac Type Severity Reaction Status Date / Time cephalexin [From Keflex] Allergy Rash/Hives Verified 05/10/22 15:28 ciprofloxacin [From Cipro] Allergy Rash/Hives Verified 05/10/22 15:28 clindamycin Allergy Rash/Hives Verified 05/10/22 15:28 levofloxacin [From Levaquin] Allergy Rash/Hives Verified 05/10/22 15:28 sulfamethoxazole Allergy Unknown Verified 05/10/22 15:28 [From Bactrim] trimethoprim [From Bactrim] Allergy Unknown Verified 05/10/22 15:28 cyclobenzaprine AdvReac Rash/Hives Verified 05/10/22 15:28 [From Flexeril] BANDAID AdvReac "PEELS Uncoded 05/10/22 15:28 SKIN" Review of Systems ROS Statement: Those systems with pertinent positive or pertinent negative responses have been documented in the HPI. ROS Other: All systems not noted in ROS Statement are negative. Past Medical History Past Medical History: COPD, Deep Vein Thrombosis (DVT), Hyperlipidemia, Hypertension, Pulmonary Embolus (PE), Seizure Disorder, Sleep Apnea/CPAP/BIPAP, Thyroid Disorder Additional Past Medical History / Comment(s): Morbid obesity History of Any Multi-Drug Resistant Organisms: None Reported Past Surgical History: Appendectomy Additional Past Surgical History / Comment(s): Colonoscopy, colostectomy and colostomy post colonoscopy Past Psychological History: No Psychological Hx Reported Past Alcohol Use History: None Reported - Past Family History Father Family Medical History: Cancer Mother Family Medical History: CVA/TIA, Hypertension Additional Family Medical History / Comment(s): BRAIN ANEURYSM General Exam Limitations: no limitations Course Vital Signs 05/10/22 15:23 Temperature 98.2 F Pulse Rate 64 Respiratory 20 Rate Blood Pressure 132/80 O2 Sat by Pulse 97 Oximetry Medical Decision Making - Medical Decision Making Due to trauma and known DVT history will check x-ray tib-fib the left lower extremity along with Doppler to rule out DVT. She denies missing her Xarelto dosing no need for anticoagulation at this time. No indication for laboratory studies. X-ray of the tib-fib negative for acute osseous findings. Mild soft tissue swelling noted. Ultrasound duplex negative for acute DVT chronic femoropopliteal Doppler noted. No acute findings at this time. Advised patient to continue pain management her her primary care recommendations. Continue anticoagulant as previously prescribed for chronic DVT. Advised may need further workup with MRI if symptoms persist. Will discharge with follow-up with her primary care provider. Case discussed with Dr. Santana. Disposition Clinical Impression: History of DVT (deep vein thrombosis), Contusion of lower leg Disposition: HOME SELF-CARE Condition: Stable Instructions (If sedation given, give patient instructions): Contusion in Adults (ED), Deep Vein Thrombosis (ED) Additional Instructions: Please continue your blood thinner as prescribed for chronic blood clot in left lower extremity. Utilize Tylenol as needed for pain. Avoid NSAIDs with blood thinners. Please follow-up with your primary care provider for further evaluation and treatment of left lower limb contusion. Please return to the Emergency Department if symptoms worsen or any other concerns. Is patient prescribed a controlled substance at d/c from ED?: No Referrals: Mani Ceja MD [Primary Care Provider] - 1-2 days Time of Disposition: 17:39
--- NOTE | 2022-05-10 16:30 | XR ---
EXAMINATION TYPE: XR tibia fibula LT DATE OF EXAM: 05/10/2022 4:18 PM INDICATION: Patient age:Female; 66 years old; Reason for study: pain swelling; COMPARISON: None TECHNIQUE: The left tibia/fibula was examined in AP and lateral projections. FINDINGS: Mild degeneration changes of the left knee. Soft tissue swelling of the left lower extremit y. Calcaneal Achilles enthesophyte and plantar spur noted. IMPRESSION: 1. No evidence of acute fracture. 2. Mild soft tissue swelling of the lower extremity.
--- NOTE | 2022-05-10 17:21 | US ---
EXAMINATION TYPE: US venous doppler duplex LE LT DATE OF EXAM: 05/10/2022 5:11 PM COMPARISON: NONE CLINICAL HISTORY: pain swelling hx dvt. pain left leg, patient on blood thinner. history of DVT SIDE PERFORMED: left TECHNIQUE: The lower extremity deep venous system is examined utilizing real time linear array sonog marcos with graded compression, doppler sonography and color-flow sonography. VESSELS IMAGED: Common Femoral Vein Deep Femoral Vein Greater Saphenous Vein * Femoral Vein Popliteal Vein Small Saphenous Vein * Proximal Calf Veins (* superficial vessels) Left Leg: positive for DVT. thready flow with partial compression left femoral vein mid/lower extend ing into popliteal vein IMPRESSION: There is evidence of chronic deep vein thrombosis in the femoral and popliteal vein.
[2022-05-10 17:53] VITALS: BP 124/55; PULSE 60; RESP 17
== END 2022-05-10 17:50 | disposition home or self-care (01) ==
LOC: EC 15:08
DX: S80.12XA Contusion of left lower leg, initial encounter (principal); I82.432 Acute embolism and thrombosis of left popliteal vein; I26.99 Other pulmonary embolism without acute cor pulmonale; E66.01 Morbid (severe) obesity due to excess calories; Z68.41 Body mass index [BMI] 40.0-44.9, adult; J44.9 Chronic obstructive pulmonary disease, unspecified; I10 Essential (primary) hypertension; E78.5 Hyperlipidemia, unspecified; E07.9 Disorder of thyroid, unspecified; Z88.1 Allergy status to other antibiotic agents; Z88.8 Allergy status to other drugs, medicaments and biological substances; Z88.2 Allergy status to sulfonamides; Z79.899 Other long term (current) drug therapy; W10.9XXA Fall (on) (from) unspecified stairs and steps, initial encounter; Y92.009 Unspecified place in unspecified non-institutional (private) residence as the place of occurrence of the external cause; Z79.01 Long term (current) use of anticoagulants
CPT/HCPCS: 99284

== ENCOUNTER 2023-07-05 11:09 | Day surgery (SDC) | payer MEDICARE ==
[2023-07-01 15:31] VITALS: BMI 45.7
[2023-07-05 11:45] VITALS: TEMP 96.8
[2023-07-05] MEDS ORDERED: LACTATED RINGERS 1,000 ML IV ONE (11:47)
[2023-07-05] MEDS ORDERED: LACTATED RINGERS 1,000 ML IV SCH (11:54)
[2023-07-05] MEDS ORDERED: PROPOFOL 10 MG/ML 20 ML VIAL IV ONE (12:56)
--- NOTE | 2023-07-05 13:09 | P.PCN ---
Date of Procedure: 07/05/23 Procedure(s) Performed: BRIEF HISTORY: Patient is a 67-year-old pleasant white female scheduled for an elective colonoscopy as a part of evaluation of prior history of colon polyps. Last colonoscopy was in 2018 and was noted to have 3 polyps all of which revealed adenoma. Prior history of colon perforation following a Colonoscopy in 1999 and 2003. PROCEDURE PERFORMED: Colonoscopy with snare polypectomy PREOPERATIVE DIAGNOSIS: History of colon polyps. IV sedation per Anesthesia. PROCEDURE: After informed consent was obtained, the patient, was brought into the endoscopy unit. IV sedation was administered by Anesthesia under continuous monitoring. Digital rectal examination was normal. Initially the Olympus CF-160 flexible video colonoscope was then inserted in the rectum, gradually advanced into the cecum without any difficulty. Careful examination was performed as the scope was gradually being withdrawn. Ileocecal valve and the appendiceal orifice were visualized and appeared normal. Prep was excellent. Mucosa of the cecum, ascending colon, transverse colon, normal. In the descending colon there was a 5 mm flat polyp noted that was removed by snare polypectomy. Scattered diffuse diverticula seen. Rest of the descending colon, sigmoid colon, and rectum appeared normal. Retroflexion was performed in the rectum and no lesions were seen. The patient tolerated the procedure well. IMPRESSION: 6 mm a flat descending colon polyp status post polypectomy Scattered diffuse diverticulosis RECOMMENDATIONS: Findings of this examination were discussed with the patient as well as her family. She was advised to follow with the biopsy results. Recommend repeat colonoscopy in 5 years..
[2023-07-05 13:14] VITALS: RESP 16
[2023-07-05 13:45] VITALS: BP 124/76; PULSE 67
== END 2023-07-05 14:05 | disposition home or self-care (01) ==
LOC: ORWHC2ENDO 11:09
PROVIDERS: ATTEND Internal Medicine Gastroenterology
DX: Z12.11 Encounter for screening for malignant neoplasm of colon (principal); K63.5 Polyp of colon; J44.9 Chronic obstructive pulmonary disease, unspecified; E66.01 Morbid (severe) obesity due to excess calories; G40.909 Epilepsy, unspecified, not intractable, without status epilepticus; Z88.2 Allergy status to sulfonamides; Z88.1 Allergy status to other antibiotic agents; Z68.41 Body mass index [BMI] 40.0-44.9, adult; Z79.891 Long term (current) use of opiate analgesic; Z79.01 Long term (current) use of anticoagulants; Z79.899 Other long term (current) drug therapy; Z88.8 Allergy status to other drugs, medicaments and biological substances; Z86.010 Personal history of colon polyps; Z79.51 Long term (current) use of inhaled steroids
CPT/HCPCS: 88305; 45385; J2704